=== PATIENT | male | born 1955 | race Caucasian/White ===

== ENCOUNTER 2019-04-24 14:56 | Emergency (ER) | payer MEDICAID, OTHER ==
[~2019-04-24] VITALS: Ht 180.3 cm; Wt 90.9 kg
[2019-04-24] MEDS ORDERED: LORazepam 1 MG tablet PO ONE (15:55)
--- NOTE | 2019-04-24 16:33 | NUR ---
pt is resting quietly on [place], family at bedside, pt is said "I am ready to go home"
[2019-04-24] MEDS ORDERED: LORA1TAB PO (16:38)
[2019-04-24] MEDS ORDERED: DOXY100C43 PO (16:38)
--- NOTE | 2019-04-24 17:12 | NUR ---
pt continues to rest quietly on gurney, waiting for lab results
[2019-04-24 17:37] VITALS: BP 153/93
== END 2019-04-24 18:14 | disposition home or self-care (01) ==
LOC: ER 14:57
DX: M25.512 Pain in left shoulder (principal); F10.239 Alcohol dependence with withdrawal, unspecified; L29.9 Pruritus, unspecified; I10 Essential (primary) hypertension; R73.9 Hyperglycemia, unspecified; Z88.5 Allergy status to narcotic agent; Z79.2 Long term (current) use of antibiotics; Z98.890 Other specified postprocedural states
CPT/HCPCS: 36415; 82948; 83036; 99283

== ENCOUNTER 2019-07-01 18:57 | Emergency (ER) | payer MEDICAID ==
[~2019-07-01] VITALS: Ht 180.3 cm; Wt 90.9 kg
--- NOTE | 2019-07-01 19:26 | NUR ---
PT STATES, I HAVE ABOUT 4-5 DRINKS A DAY. PT SEVERELY SHAKING
--- NOTE | 2019-07-01 19:27 | NUR ---
DOCTOR CHANGED HIS BP MED TO LISINOPRIL 10 MG. TOOK ONE THIS AM AND MADE HIM FEEL, NAUSEA, DIZZY AND WEAK.
[2019-07-01 19:39] LABS: BASOPHILS % (AUTO) 0.2 % (0-1); EOSINOPHILS # (AUTO) 0.1 X10'3 (0-0.9); EOSINOPHILS % (AUTO) 1.9 % (0-6); HEMATOCRIT 43.3 % (42.0-52.0); HEMOGLOBIN 15.4 g/dl (14.0-17.9); LYMPHOCYTES # (AUTO) 0.8 X10'3 (1.1-4.8); LYMPHOCYTES % (AUTO) 14.7 % (21-51); MEAN CORPUSCULAR HEMOGLOBIN 37.3 PG (27.0-31.0); MEAN CORPUSCULAR HGB CONC 35.6 g/dL (33.0-36.5); MEAN CORPUSCULAR VOLUME 104.6 FL (78-98); MEAN PLATELET VOLUME 7.5 FL (7.4-10.4); MONOCYTES # (AUTO) 0.4 X10'3 (0-0.9); MONOCYTES % (AUTO) 8.7 % (2-12); NEUTROPHILS # (AUTO) 3.8 X10'3 (1.8-7.7); NEUTROPHILS % (AUTO) 74.5 % (42-75); PLATELET COUNT 162 X10'3 (140-440); RED BLOOD COUNT 4.14 X10'6 (4.70-6.10); RED CELL DISTRIBUTION WIDTH 12.4 % (11.5-14.5); WHITE BLOOD COUNT 5.1 X10'3 (4.5-11.0)
[2019-07-01] MEDS ORDERED: diazepam 5mg tablet PO ONE (19:45)
[2019-07-01 19:46] LABS: PARTIAL THROMBOPLASTIN TIME 29 SECONDS (22-32)
[2019-07-01 19:50] LABS: ALANINE AMINOTRANSFERASE 58 U/L (12-78); ALBUMIN 3.4 G/DL (3.4-5.0); ALBUMIN/GLOBULIN RATIO 0.5 (1.1-1.5); ALKALINE PHOSPHATASE 101 IU/L (46-116); ANION GAP 6 (8-16); ASPARTATE AMINO TRANSFERASE 112 U/L (10-37); BILIRUBIN,TOTAL 0.8 MG/DL (0.1-1.0); BLOOD UREA NITROGEN 2 MG/DL (7-18); BUN/CREATININE RATIO 3.2 (5.4-32.0); CALCIUM 9.3 MG/DL (8.5-10.1); CHLORIDE 98 MMOL/L (99-107); CREATININE 0.63 MG/DL (0.60-1.10); POTASSIUM 3.6 MMOL/L (3.5-5.1); SODIUM 135 MMOL/L (135-145); TOTAL CARBON DIOXIDE 30.6 MMOL/L (24-32); TOTAL PROTEIN 9.7 G/DL (6.4-8.2); eGFR > 90 ML/MIN
[2019-07-01 19:53] LABS: GLUCOSE 134 MG/DL (70-104)
[2019-07-01 20:42] VITALS: BP 163/87
== END 2019-07-01 20:45 | disposition home or self-care (01) ==
LOC: ER 18:58
DX: I10 Essential (primary) hypertension (principal); R07.89 Other chest pain; Z88.5 Allergy status to narcotic agent
CPT/HCPCS: 36415; 71045; 80053; 84484; 85025; 85610; 85730; 93005; 99284

== ENCOUNTER 2020-02-28 13:44 | Outpatient (CLI) | payer MEDICAID ==
[2020-02-28] MEDS ORDERED: ASPI81TA52 PO (14:45)
[2020-02-28] MEDS ORDERED: DILT180C89 PO (14:45)
[2020-02-28 15:37] LABS: BASOPHILS % (AUTO) 0.3 % (0-1); EOSINOPHILS # (AUTO) 0.1 X10'3 (0-0.9); EOSINOPHILS % (AUTO) 0.7 % (0-6); LYMPHOCYTES # (AUTO) 1.5 X10'3 (1.1-4.8); LYMPHOCYTES % (AUTO) 11.4 % (21-51); MEAN CORPUSCULAR HEMOGLOBIN 36.7 PG (27.0-31.0); MEAN CORPUSCULAR HGB CONC 34.3 g/dL (33.0-36.5); MEAN CORPUSCULAR VOLUME 106.9 FL (78-98); NEUTROPHILS # (AUTO) 10.1 X10'3 (1.8-7.7); NEUTROPHILS % (AUTO) 79.6 % (42-75); PRE OP HEMATOCRIT 39.1 % (42.0-52.0); PRE OP HEMOGLOBIN 13.4 g/dL (14.0-17.9); PRE OP PLATELET COUNT 169 X10'3 (140-440); RED BLOOD COUNT 3.65 X10'6 (4.70-6.10); RED CELL DISTRIBUTION WIDTH 13.9 % (11.5-14.5)
[2020-02-28 15:54] LABS: ALBUMIN 2.3 G/DL (3.4-5.0); ALBUMIN/GLOBULIN RATIO 0.4 (1.1-1.5); ALKALINE PHOSPHATASE 137 IU/L (46-116); BLOOD UREA NITROGEN 4 MG/DL (7-18); BUN/CREATININE RATIO 5.9 (5.4-32.0); CALCIUM 8.4 MG/DL (8.5-10.1); CHLORIDE 96 MMOL/L (99-107); CREATININE 0.68 MG/DL (0.60-1.10); PRE OP ANION GAP 5 (8-16); PRE OP AST 65 U/L (10-37); PRE OP BILIRUB, TOTAL 1.8 MG/DL (0.0-1.0); PRE OP SODIUM 133 MMOL/L (135-145); TOTAL CARBON DIOXIDE 32.5 MMOL/L (24-32); TOTAL PROTEIN 8.8 G/DL (6.4-8.2); eGFR > 90 ML/MIN
[2020-02-28 15:56] LABS: PRE OP POTASSIUM 3.1 MMOL/L (3.4-5.1)
[2020-02-28 16:05] LABS: PRE OP ALT 15 U/L (30-65)
[2020-02-28 16:06] LABS: PRE OP GLUCOSE 122 MG/DL (70-104)
== END 2020-02-28 23:59 | disposition home or self-care (01) ==
LOC: PRE-OP 13:44 → EDSTATUS 03-07 12:15
PROVIDERS: ATTEND Orthopaedic Surgery
DX: Z01.818 Encounter for other preprocedural examination (principal); Z11.59 Encounter for screening for other viral diseases; M75.122 Complete rotator cuff tear or rupture of left shoulder, not specified as traumatic; D49.6 Neoplasm of unspecified behavior of brain; R25.1 Tremor, unspecified; M75.42 Impingement syndrome of left shoulder; M19.012 Primary osteoarthritis, left shoulder; F10.10 Alcohol abuse, uncomplicated; I10 Essential (primary) hypertension; E66.8 Other obesity; M75.41 Impingement syndrome of right shoulder; I45.81 Long QT syndrome
CPT/HCPCS: 36415; 80053; 85025; 93005; U0003

== ENCOUNTER 2020-07-01 08:23 | Inpatient (IN) | payer MEDICAID ==
[2020-07-01] VITALS (7 sets, daily range): BP systolic 114–131; BP diastolic 66–73
[~2020-07-01] VITALS: Ht 180.3 cm; Wt 83.2 kg
[~2020-07-01 08:23] MED LIST: ASPI81TA52 PO; DILT180C89 PO
[2020-07-01 09:59] LABS: CLARITY,URINE CLEAR (Clear); COLOR,URINE YELLOW (Yellow); GLUCOSE, URINE NEGATIVE (Neg); KETONES,URINE NEGATIVE (Neg); LEUKOCYTE ESTERASE ,URINE NEGATIVE (Neg); NITRITES, URINE NEGATIVE (Neg); OCCULT BLOOD,URINE SMALL (Neg); PH,URINE 8.5 (4.8-8.0); PROTEIN,URINE NEGATIVE (Neg)
[2020-07-01 10:15] LABS: BASOPHILS # (AUTO) 0.1 X10'3 (0-0.2); BASOPHILS % (AUTO) 0.6 % (0-1); EOSINOPHILS # (AUTO) 0.1 X10'3 (0-0.9); EOSINOPHILS % (AUTO) 1.1 % (0-6); HEMOGLOBIN 7.6 g/dl (14.0-17.9); LYMPHOCYTES # (AUTO) 0.9 X10'3 (1.1-4.8); LYMPHOCYTES % (AUTO) 10.1 % (21-51); MEAN CORPUSCULAR HEMOGLOBIN 37.8 PG (27.0-31.0); MEAN CORPUSCULAR HGB CONC 35.4 g/dL (33.0-36.5); MEAN CORPUSCULAR VOLUME 106.8 FL (78-98); MEAN PLATELET VOLUME 7.3 FL (7.4-10.4); MONOCYTES # (AUTO) 0.8 X10'3 (0-0.9); MONOCYTES % (AUTO) 9.2 % (2-12); NEUTROPHILS # (AUTO) 6.8 X10'3 (1.8-7.7); PLATELET COUNT 179 X10'3 (140-440); RED CELL DISTRIBUTION WIDTH 14.6 % (11.5-14.5); WHITE BLOOD COUNT 8.6 X10'3 (4.5-11.0)
[2020-07-01 10:19] LABS: HEMATOCRIT 21.4 % (42.0-52.0)
[2020-07-01 10:22] LABS: UA COLLECTION TYPE URINAL
[2020-07-01 10:27] LABS: PARTIAL THROMBOPLASTIN TIME 32 SECONDS (22-32)
[2020-07-01 10:29] LABS: ALANINE AMINOTRANSFERASE 26 U/L (12-78); ALBUMIN/GLOBULIN RATIO 0.3 (1.1-1.5); ALKALINE PHOSPHATASE 149 IU/L (46-116); ANION GAP 5 (8-16); ASPARTATE AMINO TRANSFERASE 107 U/L (10-37); BILIRUBIN,TOTAL 2.7 MG/DL (0.1-1.0); BLOOD UREA NITROGEN 3 MG/DL (7-18); BUN/CREATININE RATIO 4.5 (5.4-32.0); CALCIUM 7.8 MG/DL (8.5-10.1); CHLORIDE 103 MMOL/L (99-107); CREATININE 0.67 MG/DL (0.60-1.10); GLUCOSE 122 MG/DL (70-104); POTASSIUM 3.2 MMOL/L (3.5-5.1); SODIUM 138 MMOL/L (135-145); TOTAL CARBON DIOXIDE 30.4 MMOL/L (24-32); TOTAL PROTEIN 8.1 G/DL (6.4-8.2); eGFR > 90 ML/MIN
[2020-07-01 10:29] LABS: BACTERIA,URINE NONE SEEN /HPF (Neg); MUCUS STRANDS NONE SEEN /LPF (Neg); RBC,URINE NONE SEEN /HPF (0-2); SQUAMOUS EPITHELIAL CELL,UR FEW /LPF (FEW); WBC,URINE 0-4 /HPF (0-4)
[2020-07-01] MEDS ORDERED: tranexamic acid 1gm/0.7% sal. 100 ML IV ONE (11:25)
[2020-07-01] MEDS ORDERED: iohexol 300mg/ml 100ml inj. ONE (11:30)
--- NOTE | 2020-07-01 12:38 | NUR ---
when pt arrived changed his small dressing on his abd that is drenched in dry blood. checked the pt around 1200 and his dressing has soaked threw with blood and a pressure dressing to his abd per PA Flores has been applied.
[2020-07-01] MEDS ORDERED: mag hydrox/Alum hydrox/simeth 30ml oral suspension PO PRN (14:50)
[2020-07-01] MEDS ORDERED: ondansetron/PF 4mg/2ml inj IV PRN (14:50)
[2020-07-01] MEDS ORDERED: potassium CL 10mEq/100ml bag 100 ML IV PRN ×2 (14:50)
[2020-07-01] MEDS ORDERED: magnesium 4gm in 100ml NS 100 ML IV PRN (14:50)
[2020-07-01] MEDS ORDERED: magnesium 2GM in 50ml NS 50 ML IV PRN (14:50)
[2020-07-01] MEDS ORDERED: potassium Cl 20 mEq SR tablet PO PRN (14:50)
[2020-07-01] MEDS ORDERED: acetaminophen 325mg tablet PO PRN (14:50)
[2020-07-01 15:20] LABS: HEMATOCRIT 24.9 % (42.0-52.0); HEMOGLOBIN 8.7 g/dl (14.0-17.9); MEAN CORPUSCULAR HEMOGLOBIN 37.1 PG (27.0-31.0); MEAN CORPUSCULAR HGB CONC 35.1 g/dL (33.0-36.5); MEAN CORPUSCULAR VOLUME 105.6 FL (78-98); MEAN PLATELET VOLUME 7.3 FL (7.4-10.4); PLATELET COUNT 180 X10'3 (140-440); RED BLOOD COUNT 2.36 X10'6 (4.70-6.10); RED CELL DISTRIBUTION WIDTH 15.6 % (11.5-14.5); WHITE BLOOD COUNT 8.9 X10'3 (4.5-11.0)
[2020-07-01] MEDS ORDERED: haloperidol 5mg tablet PO PRN (15:25)
[2020-07-01] MEDS ORDERED: haloperidol lactate 5mg/ml inj IM PRN (15:25)
[2020-07-01] MEDS: pantoprazole 40MG/NS 100ML BAG 100 ML IV SCH ×2 (16:51→20:44)
[2020-07-01] MEDS ORDERED: FERR325T28 PO (17:05)
--- NOTE | 2020-07-01 17:07 | NUR ---
attempted to call report. graciela is with another pt at this time. states they will have her call me back.
--- NOTE | 2020-07-01 17:45 | NUR ---
Patient arrived to the floor transferred to bed with slide board. Redressed patients abdominal area with 4x4 gauze ABD and foam tape with abdominal binder. Patient oriented to room assessment complete mother at bedside, Tele monitor placed on patient.
--- NOTE | 2020-07-01 18:44 | NUR ---
Problems reprioritized. Patient report given, questions answered & plan of care reviewed with Brandon POLLARD.
[2020-07-01] MEDS: K and/or MAG REPLACEMENT MC SCH (20:00)
[2020-07-01] MEDS: LORazepam 2 mg/ml vial IV PRN (20:44)
[2020-07-01] MEDS: docusate sod 100mg capsule PO SCH (20:44)
[2020-07-01] MEDS: potassium Cl 20 mEq SR tablet PO PRN (20:58)
[2020-07-01 22:06] LABS: HEMATOCRIT 23.5 % (42.0-52.0); HEMOGLOBIN 8.2 g/dl (14.0-17.9); MEAN CORPUSCULAR HEMOGLOBIN 37.4 PG (27.0-31.0); MEAN CORPUSCULAR HGB CONC 34.9 g/dL (33.0-36.5); MEAN PLATELET VOLUME 7.5 FL (7.4-10.4); PLATELET COUNT 165 X10'3 (140-440); RED CELL DISTRIBUTION WIDTH 15.9 % (11.5-14.5); WHITE BLOOD COUNT 9.1 X10'3 (4.5-11.0)
[2020-07-01 22:14] LABS: OCCULT BLOOD STOOL NEGATIVE (Neg)
[2020-07-02] VITALS (53 sets, daily range): BP systolic 58–134; BP diastolic 30–106
--- NOTE | 2020-07-02 00:10 | NUR ---
Page Sent promotional table spacer PAGER ID: [phone] MESSAGE: pt room 4020 Alexey Leblanc. abdominal wound bleeding profusely through dressing and abdominal binder. PLEASE CALL [phone] Brandon
--- NOTE | 2020-07-02 00:15 | NUR ---
0015-Hospitalist Dr. Young return call from page. SBAR given pt on bed alarm up to RR, started bleed through abd binder, profusely. Pt was placed back in bed, supine pressure applied to umbilicus area. Was told to call Dr Lugo. Called Brittney SBAR given, he gave me # for IR continuous miner operator helper. Called [phone] got ans. machine. hung up called Nursing Sup, expl pt bleeding profusely expl will call rapid. Sup gave me a different # for IR continuous miner operator helper #[phone]. Called & spoke w/ Preeti (@0030) @ service who paged IR. Dr. English returned call, after SBAR was given he expl he is the Diagnostic Radilogist not IR. He told me to call service back & ask for Dr. Byers. Patients blood pressure 69/35-Immed. started NS BOLUS given-250. Labs drawn & blood glucose [id number] paged & 777 called by Francisca . Dr. Byers was paged he returned call, SBAR given, advised give fluid & 1 unit of blood & told to call September the PA to eval transfer to ICU. Called September ORTHODONTIST VICE PRESIDENT lockstitch back maker orders relayed, SBAR given. She stated she was on her way as rapid team was arriving to floor. During this entire time pt was supine in bed with pressure being applied to abdomen by nurse & additional nurses were continually assessing pt & providing interventions. Additional notes are listed in interventions & nursing notes.
[2020-07-02] MEDS ORDERED: albumin (human) 25% 100 ML IV solution IV ONE (00:55)
[2020-07-02 00:58] LABS: BASOPHILS # (AUTO) 0.1 X10'3 (0-0.2); BASOPHILS % (AUTO) 0.7 % (0-1); EOSINOPHILS # (AUTO) 0.2 X10'3 (0-0.9); EOSINOPHILS % (AUTO) 1.4 % (0-6); LYMPHOCYTES % (AUTO) 23.5 % (21-51); MEAN CORPUSCULAR HEMOGLOBIN 37.1 PG (27.0-31.0); MEAN CORPUSCULAR HGB CONC 34.8 g/dL (33.0-36.5); MEAN CORPUSCULAR VOLUME 106.5 FL (78-98); MEAN PLATELET VOLUME 7.1 FL (7.4-10.4); MONOCYTES # (AUTO) 0.8 X10'3 (0-0.9); MONOCYTES % (AUTO) 6.5 % (2-12); NEUTROPHILS # (AUTO) 8.6 X10'3 (1.8-7.7); NEUTROPHILS % (AUTO) 67.9 % (42-75); PLATELET COUNT 246 X10'3 (140-440); RED BLOOD COUNT 1.78 X10'6 (4.70-6.10); WHITE BLOOD COUNT 12.7 X10'3 (4.5-11.0)
[2020-07-02 01:00] LABS: HEMOGLOBIN 6.6 g/dl (14.0-17.9)
--- NOTE | 2020-07-02 01:00 | NUR ---
Problems reprioritized. Patient report given, questions answered & plan of care reviewed with Sandra POLLARD.
[2020-07-02 01:07] LABS: ALANINE AMINOTRANSFERASE 22 U/L (12-78); ALBUMIN 1.8 G/DL (3.4-5.0); ALBUMIN/GLOBULIN RATIO 0.3 (1.1-1.5); ALKALINE PHOSPHATASE 108 IU/L (46-116); ANION GAP 9 (8-16); ASPARTATE AMINO TRANSFERASE 91 U/L (10-37); BLOOD UREA NITROGEN 4 MG/DL (7-18); BUN/CREATININE RATIO 4.3 (5.4-32.0); CALCIUM 7.4 MG/DL (8.5-10.1); CHLORIDE 107 MMOL/L (99-107); CREATININE 0.92 MG/DL (0.60-1.10); LIPASE 130 U/L (73-393); MAGNESIUM 1.8 MG/DL (1.5-2.4); POTASSIUM 3.3 MMOL/L (3.5-5.1); SODIUM 141 MMOL/L (135-145); TOTAL CARBON DIOXIDE 24.9 MMOL/L (24-32); eGFR 83 ML/MIN
[2020-07-02 01:08] LABS: GLUCOSE 129 MG/DL (70-104)
--- NOTE | 2020-07-02 01:10 | NUR ---
pt transferred w/ Domingo POLLARD to ICU rm 2039
--- NOTE | 2020-07-02 01:15 | NUR ---
Patient in room ICU 2039. I have received report from Kelsie POLLARD (Ortho Neuro) and had the opportunity to ask questions and assume patient care. Tyler was called on patient and he is coming to ICU due to blood loss and hypotension. He arrived to bed 2039 with Albumin infusing. 1 unit of PRBC's is ordered and will be hung MITA. Patient is alert and oriented with stable VS. BP has already come up from the albumin.
[2020-07-02] MEDS: pantoprazole 40MG/NS 100ML BAG 100 ML IV SCH ×6 (02:10→18:22)
[2020-07-02] MEDS ORDERED: HUMAN PROTHROMBIN COMPLX(PCC) 500 UNIT KIT IV ONE (03:50)
[2020-07-02 05:17] LABS: MEAN CORPUSCULAR HEMOGLOBIN 35.5 PG (27.0-31.0); MEAN CORPUSCULAR HGB CONC 34.8 g/dL (33.0-36.5); MEAN PLATELET VOLUME 7.3 FL (7.4-10.4); PLATELET COUNT 136 X10'3 (140-440); RED CELL DISTRIBUTION WIDTH 19.4 % (11.5-14.5); WHITE BLOOD COUNT 9.8 X10'3 (4.5-11.0)
[2020-07-02 05:23] LABS: HEMATOCRIT 17.4 % (42.0-52.0)
--- NOTE | 2020-07-02 05:45 | NUR ---
Called pts mom Vanna to inform her of son's status, that his dermabond did not hold after he attempted to use RR. Vanna said she was not surprised. Informed her pt transferred to ICU & gave room number. Called Rose RN day ICU nurse for this pt and related moms phone numbers , & .
--- NOTE | 2020-07-02 06:42 | NUR ---
Problems reprioritized. Patient report given, questions answered & plan of care reviewed with Rose POLLARD.
[2020-07-02] MEDS: docusate sod 100mg capsule PO SCH ×2 (07:37→20:00)
[2020-07-02] MEDS: thiamine 100mg tablet PO SCH (07:37)
[2020-07-02] MEDS: folic acid 1mg tablet PO SCH (07:38)
[2020-07-02] MEDS: multivitamins, therapeutics tablet PO SCH (07:38)
[2020-07-02] MEDS: ferrous sulfate 325mg tablet PO SCH (07:38)
[2020-07-02] MEDS: potassium Cl 20 mEq SR tablet PO PRN ×2 (07:39→12:45)
[2020-07-02] MEDS: K and/or MAG REPLACEMENT MC SCH ×2 (08:00→20:00)
[2020-07-02 10:25] LABS: MEAN CORPUSCULAR HEMOGLOBIN 35.7 PG (27.0-31.0); MEAN CORPUSCULAR HGB CONC 35.5 g/dL (33.0-36.5); MEAN CORPUSCULAR VOLUME 100.5 FL (78-98); PLATELET COUNT 133 X10'3 (140-440); RED BLOOD COUNT 1.94 X10'6 (4.70-6.10); RED CELL DISTRIBUTION WIDTH 19.7 % (11.5-14.5); WHITE BLOOD COUNT 9.6 X10'3 (4.5-11.0)
[2020-07-02 10:29] LABS: HEMOGLOBIN 6.9 g/dl (14.0-17.9)
[2020-07-02 10:30] LABS: HEMATOCRIT 19.5 % (42.0-52.0)
--- NOTE | 2020-07-02 15:41 | NUR ---
Patient is resting comfortably in bed with no complaints at this time. He requests a blanket and his phone to be plugged in which are both done.
[2020-07-02 16:41] LABS: HEMATOCRIT 26.2 % (42.0-52.0); HEMOGLOBIN 9.3 g/dl (14.0-17.9); MEAN CORPUSCULAR HEMOGLOBIN 34.1 PG (27.0-31.0); MEAN CORPUSCULAR HGB CONC 35.4 g/dL (33.0-36.5); MEAN CORPUSCULAR VOLUME 96.4 FL (78-98); MEAN PLATELET VOLUME 7.3 FL (7.4-10.4); PLATELET COUNT 132 X10'3 (140-440); RED BLOOD COUNT 2.72 X10'6 (4.70-6.10); RED CELL DISTRIBUTION WIDTH 20.3 % (11.5-14.5); WHITE BLOOD COUNT 9.8 X10'3 (4.5-11.0)
--- NOTE | 2020-07-02 18:20 | NUR ---
Patient in room ICU 2039. I have received report from Rose POLLARD and had the opportunity to ask questions and assume patient care. Patient is resting and receiving his 6th unit of blood. He is on a protonix gtt. VS are stable, will continue to monitor.
[2020-07-02] MEDS ORDERED: nitroGLYCERIN-Tridil 50MG/D5W 250 ML IV PRN (19:00)
[2020-07-02] MEDS: LORazepam 2 mg/ml vial IV PRN ×2 (19:20→22:21)
[2020-07-02] MEDS ORDERED: hydrALAZINE 20mg/ml inj. IV ONE (20:00)
[2020-07-02] MEDS ORDERED: iohexol 300mg/ml 100ml inj. ONE (20:50)
[2020-07-02] MEDS ORDERED: iohexol 350MG/ML 100ml bottle IV ONE (20:51)
[2020-07-03] VITALS (24 sets, daily range): BP systolic 101–133; BP diastolic 52–76
[2020-07-03 01:31] LABS: HEMATOCRIT 28.2 % (42.0-52.0); HEMOGLOBIN 10.2 g/dl (14.0-17.9); MEAN CORPUSCULAR HEMOGLOBIN 33.6 PG (27.0-31.0); MEAN CORPUSCULAR HGB CONC 36.2 g/dL (33.0-36.5); MEAN PLATELET VOLUME 7.2 FL (7.4-10.4); PLATELET COUNT 123 X10'3 (140-440); RED BLOOD COUNT 3.04 X10'6 (4.70-6.10); RED CELL DISTRIBUTION WIDTH 19.3 % (11.5-14.5); WHITE BLOOD COUNT 9.6 X10'3 (4.5-11.0)
[2020-07-03 01:41] LABS: ALANINE AMINOTRANSFERASE 20 U/L (12-78); ALBUMIN 2.2 G/DL (3.4-5.0); ALKALINE PHOSPHATASE 90 IU/L (46-116); ANION GAP 8 (8-16); ASPARTATE AMINO TRANSFERASE 72 U/L (10-37); BILIRUBIN,TOTAL 6.5 MG/DL (0.1-1.0); BLOOD UREA NITROGEN 6 MG/DL (7-18); BUN/CREATININE RATIO 8.5 (5.4-32.0); CALCIUM 7.3 MG/DL (8.5-10.1); CHLORIDE 103 MMOL/L (99-107); CREATININE 0.71 MG/DL (0.60-1.10); LIPASE 121 U/L (73-393); MAGNESIUM 1.3 MG/DL (1.5-2.4); POTASSIUM 3.7 MMOL/L (3.5-5.1); SODIUM 134 MMOL/L (135-145); TOTAL CARBON DIOXIDE 22.7 MMOL/L (24-32); eGFR > 90 ML/MIN
[2020-07-03 01:44] LABS: ALBUMIN/GLOBULIN RATIO 0.5 (1.1-1.5); GLUCOSE 97 MG/DL (70-104); TOTAL PROTEIN 6.6 G/DL (6.4-8.2)
[2020-07-03] MEDS: pantoprazole 40MG/NS 100ML BAG 100 ML IV SCH ×5 (01:46→22:38)
--- NOTE | 2020-07-03 06:25 | NUR ---
Problems reprioritized. Patient report given, questions answered & plan of care reviewed with Matthew POLLARD.
--- NOTE | 2020-07-03 07:23 | NUR ---
LOGAN RN PAGED REGARDING PICC PLACEMENT FOR FLUID REPLACEMENT FOR PT. NO ORDER FOR PICC SIGNED PER RN. PLACED SECOND PIV FOR MAG AND NITRO. ADVISED HER TO REPAGE IF PICC CONSENT SIGNED AND NEEDED. Jerrod BAÑUELOS PICC RN
[2020-07-03] MEDS: K and/or MAG REPLACEMENT MC SCH ×2 (08:00→20:00)
[2020-07-03] MEDS: ferrous sulfate 325mg tablet PO SCH (08:20)
[2020-07-03] MEDS: docusate sod 100mg capsule PO SCH ×2 (08:20→20:00)
[2020-07-03] MEDS: folic acid 1mg tablet PO SCH (08:21)
[2020-07-03] MEDS: multivitamins, therapeutics tablet PO SCH (08:21)
[2020-07-03] MEDS: thiamine 100mg tablet PO SCH (08:22)
[2020-07-03 09:05] LABS: HEMATOCRIT 30.4 % (42.0-52.0); HEMOGLOBIN 10.7 g/dl (14.0-17.9); MEAN CORPUSCULAR HEMOGLOBIN 32.9 PG (27.0-31.0); MEAN CORPUSCULAR HGB CONC 35.1 g/dL (33.0-36.5); MEAN CORPUSCULAR VOLUME 93.7 FL (78-98); MEAN PLATELET VOLUME 7.3 FL (7.4-10.4); PLATELET COUNT 135 X10'3 (140-440); RED BLOOD COUNT 3.24 X10'6 (4.70-6.10); RED CELL DISTRIBUTION WIDTH 20.3 % (11.5-14.5); WHITE BLOOD COUNT 10.9 X10'3 (4.5-11.0)
--- NOTE | 2020-07-03 10:25 | NUR ---
Disregard 0903 VS comment pt is mechanical ventilated. Pt is on RA.
[2020-07-03 15:27] LABS: HEMATOCRIT 31.1 % (42.0-52.0); HEMOGLOBIN 10.7 g/dl (14.0-17.9); MEAN CORPUSCULAR HEMOGLOBIN 32.4 PG (27.0-31.0); MEAN CORPUSCULAR HGB CONC 34.5 g/dL (33.0-36.5); MEAN CORPUSCULAR VOLUME 93.9 FL (78-98); MEAN PLATELET VOLUME 7.1 FL (7.4-10.4); PLATELET COUNT 134 X10'3 (140-440); RED BLOOD COUNT 3.31 X10'6 (4.70-6.10); RED CELL DISTRIBUTION WIDTH 20.6 % (11.5-14.5); WHITE BLOOD COUNT 11.1 X10'3 (4.5-11.0)
--- NOTE | 2020-07-03 18:33 | NUR ---
Problems reprioritized. Patient report given, questions answered & plan of care reviewed with Sandra POLLARD.
[2020-07-03] MEDS: LORazepam 1 MG tablet PO PRN ×2 (20:31→22:38)
[2020-07-03 20:51] LABS: HEMATOCRIT 29.2 % (42.0-52.0); HEMOGLOBIN 10.3 g/dl (14.0-17.9); MEAN CORPUSCULAR HEMOGLOBIN 33.1 PG (27.0-31.0); MEAN CORPUSCULAR HGB CONC 35.3 g/dL (33.0-36.5); MEAN CORPUSCULAR VOLUME 93.7 FL (78-98); MEAN PLATELET VOLUME 6.9 FL (7.4-10.4); PLATELET COUNT 139 X10'3 (140-440); RED BLOOD COUNT 3.11 X10'6 (4.70-6.10); RED CELL DISTRIBUTION WIDTH 20.3 % (11.5-14.5); WHITE BLOOD COUNT 10.8 X10'3 (4.5-11.0)
[2020-07-03 21:09] LABS: ALANINE AMINOTRANSFERASE 21 U/L (12-78); ALBUMIN 2.2 G/DL (3.4-5.0); ALKALINE PHOSPHATASE 96 IU/L (46-116); ANION GAP 5 (8-16); ASPARTATE AMINO TRANSFERASE 78 U/L (10-37); BILIRUBIN,TOTAL 4.4 MG/DL (0.1-1.0); BLOOD UREA NITROGEN 6 MG/DL (7-18); BUN/CREATININE RATIO 9.8 (5.4-32.0); CALCIUM 7.5 MG/DL (8.5-10.1); CHLORIDE 102 MMOL/L (99-107); CREATININE 0.61 MG/DL (0.60-1.10); GLUCOSE 121 MG/DL (70-104); MAGNESIUM 2.4 MG/DL (1.5-2.4); POTASSIUM 3.6 MMOL/L (3.5-5.1); SODIUM 133 MMOL/L (135-145); TOTAL CARBON DIOXIDE 26.1 MMOL/L (24-32); eGFR > 90 ML/MIN
[2020-07-03 21:10] LABS: TOTAL PROTEIN 7.1 G/DL (6.4-8.2)
[2020-07-03 21:12] LABS: ALBUMIN/GLOBULIN RATIO 0.4 (1.1-1.5)
[2020-07-03] MEDS: temazepam 15mg capsule PO PRN (22:38)
[2020-07-04] VITALS (25 sets, daily range): BP systolic 91–159; BP diastolic 51–79
[2020-07-04] MEDS: pantoprazole 40MG/NS 100ML BAG 100 ML IV SCH ×4 (04:25→21:02)
[2020-07-04] MEDS: LORazepam 1 MG tablet PO PRN (04:25)
[2020-07-04 04:32] LABS: HEMATOCRIT 27.7 % (42.0-52.0); HEMOGLOBIN 9.7 g/dl (14.0-17.9); MEAN CORPUSCULAR VOLUME 94.4 FL (78-98); PLATELET COUNT 137 X10'3 (140-440); RED BLOOD COUNT 2.93 X10'6 (4.70-6.10); RED CELL DISTRIBUTION WIDTH 20.6 % (11.5-14.5)
[2020-07-04 04:40] LABS: ALANINE AMINOTRANSFERASE 19 U/L (12-78); ALBUMIN 2.2 G/DL (3.4-5.0); ALBUMIN/GLOBULIN RATIO 0.5 (1.1-1.5); ALKALINE PHOSPHATASE 96 IU/L (46-116); ANION GAP 5 (8-16); ASPARTATE AMINO TRANSFERASE 71 U/L (10-37); BILIRUBIN,TOTAL 4.4 MG/DL (0.1-1.0); BLOOD UREA NITROGEN 7 MG/DL (7-18); BUN/CREATININE RATIO 9.2 (5.4-32.0); CALCIUM 7.5 MG/DL (8.5-10.1); CHLORIDE 105 MMOL/L (99-107); CREATININE 0.76 MG/DL (0.60-1.10); GLUCOSE 95 MG/DL (70-104); LIPASE 157 U/L (73-393); MAGNESIUM 2.4 MG/DL (1.5-2.4); PHOSPHORUS 3.7 MG/DL (2.3-4.5); POTASSIUM 3.6 MMOL/L (3.5-5.1); SODIUM 135 MMOL/L (135-145); TOTAL CARBON DIOXIDE 25.3 MMOL/L (24-32); TOTAL PROTEIN 6.9 G/DL (6.4-8.2); eGFR > 90 ML/MIN
--- NOTE | 2020-07-04 06:38 | NUR ---
Problems reprioritized. Patient report given, questions answered & plan of care reviewed with Luz Garcia RN.
--- NOTE | 2020-07-04 07:02 | NUR ---
Patient in room ICU 2039. I have received report from Vidya Brooke and had the opportunity to ask questions and assume patient care.
[2020-07-04] MEDS: LORazepam 2 mg/ml vial IV PRN ×4 (07:43→19:54)
[2020-07-04] MEDS: thiamine 100mg tablet PO SCH (07:45)
[2020-07-04] MEDS: folic acid 1mg tablet PO SCH (07:45)
[2020-07-04] MEDS: multivitamins, therapeutics tablet PO SCH (07:46)
[2020-07-04] MEDS: ferrous sulfate 325mg tablet PO SCH (07:46)
[2020-07-04] MEDS: K and/or MAG REPLACEMENT MC SCH ×2 (07:51→20:00)
[2020-07-04] MEDS: docusate sod 100mg capsule PO SCH ×2 (08:00→20:00)
--- NOTE | 2020-07-04 10:16 | NUR ---
Dr. Olson at bedside with patient and nurse. New orders to have FC to monitor for critically ill and to order 2 units PRBS for surgery.
--- NOTE | 2020-07-04 11:22 | NUR ---
Initial: Pt admit DX etoh withdrawal and umbilical vein bleed persisting upon movement w/ prior umbilical hernia. Advanced to regular diet PO 0-25% first meals receiving adaptive dumont for shakiness and etoh withdrawal. Pending OR today for umbilical bleed repair per MD at [facility]. LB 07/03. Receiving routine thiamin, folic, MVI for etoh hx. Will monitor for PO diet advancement, tolerance, and additional protein needs post-op. Rec: 1. continue regular diet 2. monitor for ONS needs post-op 3. routine bowel care 4. wt per rx Addendum: 07/04/20 at [address] Amended: Links added.
--- NOTE | 2020-07-04 11:48 | NUR ---
Dr. Sheehan at bedside with patient and nurse. Patient was educated on procedure, with potential time of 1600 today. Pre op two hours before. Type and screen ordered and 2 units on stand by. Will continue to monitor.
[2020-07-04 12:29] LABS: HEMATOCRIT 27.6 % (42.0-52.0); HEMOGLOBIN 9.6 g/dl (14.0-17.9); MEAN CORPUSCULAR HEMOGLOBIN 33.1 PG (27.0-31.0); MEAN CORPUSCULAR HGB CONC 34.6 g/dL (33.0-36.5); MEAN CORPUSCULAR VOLUME 95.6 FL (78-98); PLATELET COUNT 138 X10'3 (140-440); RED BLOOD COUNT 2.89 X10'6 (4.70-6.10); RED CELL DISTRIBUTION WIDTH 20.5 % (11.5-14.5)
[2020-07-04] MEDS ORDERED: fentaNYL/PF 50MCG/1 ML 2ML syringe IV PRN ×2 (17:45)
[2020-07-04] MEDS ORDERED: ringers solution, lacted 1,000 ML IV SCH (17:45)
[2020-07-04] MEDS ORDERED: ondansetron/PF 4mg/2ml inj IV PRN (17:45)
[2020-07-04] MEDS ORDERED: HYDROmorphone inj. 0.5 MG/0.5 ML DISP.SYRIN IV PRN ×2 (17:45)
[2020-07-04] MEDS ORDERED: labetalol 20mg/4ml (5mg/ml) syringe IV PRN (17:45)
[2020-07-04] MEDS ORDERED: enalaprilat dihydrate 2.5mg/2ml vial IV PRN (17:45)
[2020-07-04] MEDS ORDERED: LIDOcaine 1% 30ml preserv. free vial ONE (18:15)
[2020-07-04] MEDS ORDERED: BUPIVAcaine/PF 2.5mg/ml (0.25%) 10ml vial ONE (18:15)
[2020-07-04] MEDS ORDERED: BUPIVACAINE liposomal/PF 13.3 MG/ML vial IM ONE (18:15)
[2020-07-04] MEDS ORDERED: BUPIVAcaine/PF 2.5 mg/ml (0.25%) 30ml vial ONE (18:15)
--- NOTE | 2020-07-04 18:34 | NUR ---
Problems reprioritized. Patient report given, questions answered & plan of care reviewed with Jodi POLLARD.
[2020-07-04 18:35] LABS: HEMATOCRIT 30.5 % (42.0-52.0); HEMOGLOBIN 10.8 g/dl (14.0-17.9); MEAN CORPUSCULAR HGB CONC 35.5 g/dL (33.0-36.5); MEAN CORPUSCULAR VOLUME 95.8 FL (78-98); MEAN PLATELET VOLUME 7.2 FL (7.4-10.4); PLATELET COUNT 155 X10'3 (140-440); RED BLOOD COUNT 3.18 X10'6 (4.70-6.10); RED CELL DISTRIBUTION WIDTH 20.1 % (11.5-14.5); WHITE BLOOD COUNT 10.1 X10'3 (4.5-11.0)
--- NOTE | 2020-07-04 18:47 | NUR ---
Patient in room ICU 2039. I have received report from Luz Sr RN and had the opportunity to ask questions and assume patient care.
--- NOTE | 2020-07-04 19:30 | NUR ---
Patient experienced a nonwitnessed fall. Patient was found on his knees attempting to get to the toilet underneath sink. Patient is confused r/t ETOH use and anemia and is on fall precautions. Pt had non skid socks on, his bed was low and locked, all side rails up, bed alarm was on and tabs attached to shoulder, room is near nurses station, with call light within pt's reach. patient was frequently reoriented to plan of care and the importance of using his call light and not getting up without assistance. patient still managed to pull off his quality assurance monitor final, IV line and SCD's and slip out of the bottom of the bed. Patient did not sustain any injury upon fall and stated that he did not his head. Patient denies pain or discomfort. Vitals stable pre fall at 159/71, HR-86, RR-20, O2 RA-95% and post fall 143/48, RR-20, HR-70, O2-93% on RA. Will continue to monitor for any changes.
[2020-07-05] VITALS (22 sets, daily range): BP systolic 113–157; BP diastolic 59–88
[2020-07-05] MEDS: docusate sod 100mg capsule PO SCH ×2 (00:55→08:37)
[2020-07-05] MEDS: LORazepam 2 mg/ml vial IV PRN ×2 (01:33→13:33)
[2020-07-05] MEDS: pantoprazole 40MG/NS 100ML BAG 100 ML IV SCH ×5 (01:38→21:00)
[2020-07-05 05:29] LABS: ALANINE AMINOTRANSFERASE 16 U/L (12-78); ALKALINE PHOSPHATASE 93 IU/L (46-116); ANION GAP 6 (8-16); ASPARTATE AMINO TRANSFERASE 66 U/L (10-37); BILIRUBIN,TOTAL 4.1 MG/DL (0.1-1.0); BLOOD UREA NITROGEN 7 MG/DL (7-18); BUN/CREATININE RATIO 10.1 (5.4-32.0); CALCIUM 7.6 MG/DL (8.5-10.1); CHLORIDE 107 MMOL/L (99-107); CREATININE 0.69 MG/DL (0.60-1.10); GLUCOSE 101 MG/DL (70-104); HDL CHOLESTEROL 11 MG/DL (35-60); LDL CHOLESTEROL 100 MG/DL (50-100); MAGNESIUM 2.1 MG/DL (1.5-2.4); POTASSIUM 3.6 MMOL/L (3.5-5.1); SODIUM 136 MMOL/L (135-145); TOTAL CARBON DIOXIDE 22.6 MMOL/L (24-32); eGFR > 90 ML/MIN
[2020-07-05 05:40] LABS: ALBUMIN/GLOBULIN RATIO 0.4 (1.1-1.5); CHOL/HDL RATIO 11.2 (0.00-4.99); CHOLESTEROL 123 MG/DL (0-200); PHOSPHORUS 3.3 MG/DL (2.3-4.5); TOTAL PROTEIN 6.8 G/DL (6.4-8.2); TRIGLYCERIDES 106 MG/DL (20-135)
--- NOTE | 2020-07-05 07:12 | NUR ---
Problems reprioritized. Patient report given, questions answered & plan of care reviewed with Shira POLLARD. Patient stable at transfer of care
[2020-07-05] MEDS: K and/or MAG REPLACEMENT MC SCH ×2 (08:15→20:00)
[2020-07-05] MEDS: folic acid 1mg tablet PO SCH (08:37)
[2020-07-05] MEDS: thiamine 100mg tablet PO SCH (08:37)
[2020-07-05] MEDS: multivitamins, therapeutics tablet PO SCH (08:37)
[2020-07-05] MEDS: ferrous sulfate 325mg tablet PO SCH (08:58)
--- NOTE | 2020-07-05 09:12 | NUR ---
New orders for CBC, mag and phos for the next [address] Olson
[2020-07-05 09:51] LABS: BASOPHILS % (AUTO) 0.5 % (0-1); EOSINOPHILS # (AUTO) 0.1 X10'3 (0-0.9); EOSINOPHILS % (AUTO) 1.5 % (0-6); HEMATOCRIT 29.1 % (42.0-52.0); LYMPHOCYTES # (AUTO) 0.8 X10'3 (1.1-4.8); LYMPHOCYTES % (AUTO) 8.4 % (21-51); MEAN CORPUSCULAR HEMOGLOBIN 33.1 PG (27.0-31.0); MEAN CORPUSCULAR HGB CONC 34.5 g/dL (33.0-36.5); MEAN CORPUSCULAR VOLUME 96.1 FL (78-98); MONOCYTES # (AUTO) 0.7 X10'3 (0-0.9); MONOCYTES % (AUTO) 7.7 % (2-12); NEUTROPHILS # (AUTO) 7.3 X10'3 (1.8-7.7); NEUTROPHILS % (AUTO) 81.9 % (42-75); PLATELET COUNT 150 X10'3 (140-440); RED BLOOD COUNT 3.03 X10'6 (4.70-6.10); RED CELL DISTRIBUTION WIDTH 20.1 % (11.5-14.5); WHITE BLOOD COUNT 8.9 X10'3 (4.5-11.0)
[2020-07-05 11:07] LABS: ANISOCYTOSIS 3+; PLATELET ESTIMATE NORMAL
[2020-07-05 11:08] LABS: POLYCHROMASIA FEW
[2020-07-05] MEDS ORDERED: LIDOcaine 1% (10mg/ml) 2ml vial ONE ×2 (14:05→14:37)
[2020-07-05] MEDS ORDERED: BUPIVACAINE liposomal/PF 13.3 MG/ML vial IM ONE (14:16)
[2020-07-05] MEDS ORDERED: BUPIVAcaine/PF 2.5 mg/ml (0.25%) 30ml vial ONE (14:16)
[2020-07-05] MEDS ORDERED: midazolam 2 mg/2 ml injection ONE (14:39)
[2020-07-05] MEDS ORDERED: propofol inj 20 ML IV ONE (14:39)
[2020-07-05] MEDS ORDERED: rocuronium 10mg/ml inj IV ONE (14:39)
[2020-07-05] MEDS ORDERED: fentaNYL/PF 50MCG/1 ML 2ML syringe ONE ×2 (14:39→17:30)
[2020-07-05] MEDS ORDERED: LORazepam 2 mg/ml vial IV PRN (15:25)
[2020-07-05] MEDS ORDERED: LORazepam 1 MG tablet PO PRN (15:25)
[2020-07-05] MEDS ORDERED: albumin (Human) 5% 250ml 250 ML IV ONE (17:18)
[2020-07-05] MEDS ORDERED: neostigmine methylsulfate 1 MG/ML 10ml vial ONE (17:30)
[2020-07-05] MEDS ORDERED: glycopyrrolate 0.2mg/ml inj ONE (17:30)
[2020-07-05] MEDS ORDERED: ondansetron/PF 4mg/2ml inj IV PRN (17:40)
--- NOTE | 2020-07-05 18:30 | NUR ---
Problems reprioritized. Patient report given, questions answered & plan of care reviewed with LATRICE Sun.
--- NOTE | 2020-07-05 18:43 | NUR ---
Patient in room ICU 2039. I have received report from Shira POLLARD and had the opportunity to ask questions and assume patient care.
--- NOTE | 2020-07-05 19:00 | NUR ---
REPORT RECEIVED FROM ILIANA IN ICU AND AWAITING FOR PATIENT ARRIVAL.
--- NOTE | 2020-07-05 19:00 | NUR ---
Problems reprioritized. Patient report given, questions answered & plan of care reviewed with Prudence RN.
--- NOTE | 2020-07-05 19:30 | NUR ---
Post op LR infusing at 50cc/HR. Protonix IV cont. initiated post op.
[2020-07-05] MEDS: HYDROcodone/acetaminophen 10/325mg tab PO PRN (19:40)
--- NOTE | 2020-07-05 22:23 | NUR ---
Pt transferring to PCU via bed.
--- NOTE | 2020-07-05 22:56 | NUR ---
PATIENT ARRIVED ON THE UNIT AND IS NOW RESTING WITH A SITTER BY HIS BEDSIDE. WILL ASSUME CARE AND ADMINISTER MEDICATIONS ORDERED.
--- NOTE | 2020-07-05 22:58 | NUR ---
Pt arrived to 301 via bed w/o incident.
[2020-07-06] MEDS: ceFAZolin inj. 1,000 MG in dextrose 5%-water 50ml 50 ML IV SCH ×3 (00:12→17:21)
[2020-07-06] MEDS: pantoprazole 40MG/NS 100ML BAG 100 ML IV SCH ×6 (00:16→22:34)
[2020-07-06 02:00] VITALS: BP 97/59
[2020-07-06 05:36] LABS: BASOPHILS % (AUTO) 0.3 % (0-1); EOSINOPHILS # (AUTO) 0.1 X10'3 (0-0.9); EOSINOPHILS % (AUTO) 1.5 % (0-6); HEMATOCRIT 27.9 % (42.0-52.0); HEMOGLOBIN 9.7 g/dl (14.0-17.9); LYMPHOCYTES # (AUTO) 0.8 X10'3 (1.1-4.8); LYMPHOCYTES % (AUTO) 10.1 % (21-51); MEAN CORPUSCULAR HEMOGLOBIN 33.8 PG (27.0-31.0); MEAN CORPUSCULAR HGB CONC 34.8 g/dL (33.0-36.5); MEAN CORPUSCULAR VOLUME 97.2 FL (78-98); MEAN PLATELET VOLUME 7.4 FL (7.4-10.4); MONOCYTES # (AUTO) 0.5 X10'3 (0-0.9); MONOCYTES % (AUTO) 6.4 % (2-12); NEUTROPHILS # (AUTO) 6.2 X10'3 (1.8-7.7); NEUTROPHILS % (AUTO) 81.7 % (42-75); PLATELET COUNT 129 X10'3 (140-440); RED BLOOD COUNT 2.87 X10'6 (4.70-6.10); RED CELL DISTRIBUTION WIDTH 21.3 % (11.5-14.5); WHITE BLOOD COUNT 7.6 X10'3 (4.5-11.0)
[2020-07-06 06:02] LABS: ALANINE AMINOTRANSFERASE 16 U/L (12-78); ALBUMIN/GLOBULIN RATIO 0.4 (1.1-1.5); ALKALINE PHOSPHATASE 80 IU/L (46-116); ANION GAP 7 (8-16); ASPARTATE AMINO TRANSFERASE 61 U/L (10-37); BILIRUBIN,TOTAL 3.5 MG/DL (0.1-1.0); BLOOD UREA NITROGEN 7 MG/DL (7-18); BUN/CREATININE RATIO 10.8 (5.4-32.0); CALCIUM 7.7 MG/DL (8.5-10.1); CHLORIDE 103 MMOL/L (99-107); CREATININE 0.65 MG/DL (0.60-1.10); GLUCOSE 101 MG/DL (70-104); LIPASE 57 U/L (73-393); MAGNESIUM 1.8 MG/DL (1.5-2.4); PHOSPHORUS 3.4 MG/DL (2.3-4.5); POTASSIUM 3.5 MMOL/L (3.5-5.1); SODIUM 135 MMOL/L (135-145); TOTAL CARBON DIOXIDE 25.2 MMOL/L (24-32); TOTAL PROTEIN 6.7 G/DL (6.4-8.2); eGFR > 90 ML/MIN
--- NOTE | 2020-07-06 06:35 | NUR ---
Problems reprioritized. Patient report given, questions answered & plan of care reviewed with LAVONNE POLLARD.
[2020-07-06 07:00] VITALS: BP 125/61
[2020-07-06] MEDS: K and/or MAG REPLACEMENT MC SCH ×2 (08:00→19:50)
[2020-07-06] MEDS: folic acid 1mg tablet PO SCH (08:01)
[2020-07-06] MEDS: thiamine 100mg tablet PO SCH (08:01)
[2020-07-06] MEDS: multivitamins, therapeutics tablet PO SCH (08:01)
[2020-07-06] MEDS: docusate sod 100mg capsule PO SCH ×2 (08:01→19:57)
[2020-07-06] MEDS: ferrous sulfate 325mg tablet PO SCH (08:01)
[2020-07-06] MEDS: HYDROcodone/acetaminophen 10/325mg tab PO PRN (08:02)
[2020-07-06 08:49] LABS: ANISOCYTOSIS 3+; HYPOCHROMASIA 1+; PLATELET ESTIMATE DECREASED; POLYCHROMASIA 1+
[2020-07-06 08:50] LABS: ROULEAUX 1+; TARGET CELLS FEW
[2020-07-06] MEDS ORDERED: epoetin 20,000 units/ml inj IV ONE (09:50)
[2020-07-06] MEDS ORDERED: normal saline 1000ml 250 ML IV PRN (09:50)
[2020-07-06] MEDS ORDERED: heparin 1,000unit/ml 10ml vial 10 ML IV ONE (09:50)
[2020-07-06] MEDS ORDERED: heparin 1,000 units/ml 10ml inj HE ONE ×2 (09:55)
[2020-07-06 15:00] VITALS: BP 121/72
[2020-07-06 18:00] VITALS: BP 114/68
--- NOTE | 2020-07-06 18:41 | NUR ---
Patient in room PCU 3012. I have received report from LAVONNE POLLARD and had the opportunity to ask questions and assume patient care.
--- NOTE | 2020-07-06 19:11 | NUR ---
Gave report to Prudence LATRICE.
[2020-07-06] MEDS: temazepam 15mg capsule PO PRN (21:32)
[2020-07-06 22:00] VITALS: BP 118/70
[2020-07-07 02:00] VITALS: BP 112/70
[2020-07-07] MEDS: pantoprazole 40MG/NS 100ML BAG 100 ML IV SCH ×2 (03:10→09:22)
[2020-07-07 05:49] LABS: BASOPHILS % (AUTO) 0.3 % (0-1); EOSINOPHILS # (AUTO) 0.1 X10'3 (0-0.9); EOSINOPHILS % (AUTO) 1.3 % (0-6); HEMATOCRIT 30.4 % (42.0-52.0); HEMOGLOBIN 10.5 g/dl (14.0-17.9); LYMPHOCYTES # (AUTO) 0.9 X10'3 (1.1-4.8); MEAN CORPUSCULAR HEMOGLOBIN 33.9 PG (27.0-31.0); MEAN CORPUSCULAR HGB CONC 34.4 g/dL (33.0-36.5); MEAN CORPUSCULAR VOLUME 98.6 FL (78-98); MEAN PLATELET VOLUME 7.1 FL (7.4-10.4); MONOCYTES # (AUTO) 0.9 X10'3 (0-0.9); MONOCYTES % (AUTO) 8.2 % (2-12); NEUTROPHILS # (AUTO) 8.7 X10'3 (1.8-7.7); NEUTROPHILS % (AUTO) 82.2 % (42-75); PLATELET COUNT 171 X10'3 (140-440); RED BLOOD COUNT 3.09 X10'6 (4.70-6.10); WHITE BLOOD COUNT 10.6 X10'3 (4.5-11.0)
--- NOTE | 2020-07-07 06:22 | NUR ---
Problems reprioritized. Patient report given, questions answered & plan of care reviewed with KIRSTY POLLARD.
--- NOTE | 2020-07-07 06:46 | NUR ---
Patient in room PCU 3012. I have received report from LATRICE Haq and had the opportunity to ask questions and assume patient care.
[2020-07-07 07:00] VITALS: BP 108/65
[2020-07-07 07:41] LABS: PLATELET ESTIMATE NORMAL; POLYCHROMASIA 1+
[2020-07-07 07:42] LABS: ANISOCYTOSIS 3+; HYPOCHROMASIA 1+; ROULEAUX 1+; TARGET CELLS FEW
[2020-07-07] MEDS: ferrous sulfate 325mg tablet PO SCH (07:43)
[2020-07-07] MEDS: HYDROcodone/acetaminophen 10/325mg tab PO PRN ×2 (07:43→20:10)
[2020-07-07] MEDS: multivitamins, therapeutics tablet PO SCH (07:43)
[2020-07-07] MEDS: docusate sod 100mg capsule PO SCH ×2 (07:43→20:10)
[2020-07-07] MEDS: folic acid 1mg tablet PO SCH (07:44)
[2020-07-07] MEDS: thiamine 100mg tablet PO SCH (07:44)
[2020-07-07] MEDS: K and/or MAG REPLACEMENT MC SCH ×2 (07:44→20:00)
[2020-07-07] MEDS ORDERED: methylnaltrexone br 12mg/0.6ml inj***SubQ only SQ SCH (09:10)
--- NOTE | 2020-07-07 09:34 | NUR ---
Removed catheter per order, cannula intact. Will continue to monitor.
[2020-07-07 11:00] VITALS: BP 114/68
[2020-07-07 15:00] VITALS: BP 124/80
--- NOTE | 2020-07-07 18:19 | NUR ---
Problems reprioritized. Patient report given, questions answered & plan of care reviewed with LATRICE Vines.
[2020-07-07 23:00] VITALS: BP 93/54
--- NOTE | 2020-07-08 06:56 | NUR ---
Patient in room PCU 3012. I have received report from LATRICE Vines and had the opportunity to ask questions and assume patient care.
--- NOTE | 2020-07-08 07:03 | NUR ---
Problems reprioritized. Patient report given, questions answered & plan of care reviewed with KIRSTY. Addendum: 07/08/20 at 0704 by Clemente Rivas RN Amended: Links added.
[2020-07-08] MEDS: ferrous sulfate 325mg tablet PO SCH (07:21)
[2020-07-08] MEDS: docusate sod 100mg capsule PO SCH (07:21)
[2020-07-08] MEDS: folic acid 1mg tablet PO SCH (07:21)
[2020-07-08] MEDS: multivitamins, therapeutics tablet PO SCH (07:22)
[2020-07-08] MEDS: thiamine 100mg tablet PO SCH (07:22)
[2020-07-08] MEDS: HYDROcodone/acetaminophen 10/325mg tab PO PRN (07:24)
[2020-07-08 07:25] LABS: HEMOGLOBIN 11.2 g/dl (14.0-17.9)
[2020-07-08 07:27] LABS: BASOPHILS % (AUTO) 0.2 % (0-1); EOSINOPHILS # (AUTO) 0.1 X10'3 (0-0.9); EOSINOPHILS % (AUTO) 0.5 % (0-6); HEMATOCRIT 33.3 % (42.0-52.0); LYMPHOCYTES # (AUTO) 0.7 X10'3 (1.1-4.8); LYMPHOCYTES % (AUTO) 5.4 % (21-51); MEAN CORPUSCULAR HEMOGLOBIN 32.9 PG (27.0-31.0); MEAN CORPUSCULAR HGB CONC 33.6 g/dL (33.0-36.5); MEAN PLATELET VOLUME 7.4 FL (7.4-10.4); MONOCYTES # (AUTO) 0.8 X10'3 (0-0.9); MONOCYTES % (AUTO) 5.7 % (2-12); NEUTROPHILS % (AUTO) 88.2 % (42-75); PLATELET COUNT 218 X10'3 (140-440); RED BLOOD COUNT 3.39 X10'6 (4.70-6.10); RED CELL DISTRIBUTION WIDTH 20.4 % (11.5-14.5); WHITE BLOOD COUNT 13.6 X10'3 (4.5-11.0)
[2020-07-08] MEDS ORDERED: pantoprazole 40mg Tablet.DR PO SCH (07:30)
[2020-07-08 07:36] LABS: MAGNESIUM 1.5 MG/DL (1.5-2.4); PHOSPHORUS 3.6 MG/DL (2.3-4.5)
[2020-07-08 07:53] VITALS: BP 98/62
[2020-07-08] MEDS: K and/or MAG REPLACEMENT MC SCH (08:00)
[2020-07-08 08:38] LABS: ANISOCYTOSIS 3+; PLATELET ESTIMATE NORMAL
--- NOTE | 2020-07-08 10:17 | NUR ---
Student Medication Administration: For this medication-pass time frame, all medication were reviewed, dispensed, administered and documented per hospital policy by Alden nursing education consultant.
--- NOTE | 2020-07-08 10:24 | NUR ---
Student documentation: I have reviewed and agree with all interventions, assessments performed and documented by Alden, doctor of nursing practice.
[2020-07-08 10:59] VITALS: BP 106/71
[2020-07-08] MEDS ORDERED: PANT40TA54 PO (14:57)
[2020-07-08] MEDS ORDERED: MULT-25 PO (14:57)
[2020-07-08] MEDS ORDERED: thiamine tablet PO (14:57)
[2020-07-08] MEDS ORDERED: folic acid tablet PO (14:57)
--- NOTE | 2020-07-08 15:25 | NUR ---
Pt stable for discharge per MD order, all discharge instructions reviewed with patient and all questions answered. PIV discontinued, cannula intact. Telemetry discontinued, telegraphic typewriter mechanic notified. New prescriptions faxed to pharmacy. All belongings collected and sent with patient. Patient picked up in private vehicle by family member, wheeled to lobby by staff.
--- NOTE | 2020-07-08 16:17 | NUR ---
Reassessment: Pt s/p hernia repair (07/05). Pt on clear liquid diet since 07/05, was eating 25% average regular diet. Pt is on day 3 of clear liquid diet post op. Per physical assessment, pt has positive bowel sounds. Last BM (07/08), is having smears and small bowel movements. Relistor was given (07/07), per hospitalist note. Pt is receiving colace BID. Discussed with nurse about diet advancement, patient is getting discharged today. Will continue to monitor for nutrition support needs if diet advances. Addendum: 07/08/20 at [address] Amended: Links added. Addendum: 07/08/20 at [address] Recs: 1) Advance diet as medically indicated to regular 2) Routine bowel care 3) Wt per Rx Addendum: 07/08/20 at [address] MOHAMUD clark with filemon note
== END 2020-07-08 15:25 | disposition home or self-care (01) | DRG 228 ==
LOC: ER 08:23 → ED HOLD 14:49 → ORTHO 4S 17:52 → ICU 2S 07-02 02:07 → PCU 3S 07-05 22:40
PROVIDERS: ADMIT Family Medicine; ATTEND Family Medicine
PROC: BW211ZZ Computerized Tomography (CT Scan) of Abdomen and Pelvis using Low Osmolar Contrast (ICD-10-PCS; 2020-07-01)
PROC: 30233N1 Transfusion of Nonautologous Red Blood Cells into Peripheral Vein, Percutaneous Approach (ICD-10-PCS; 2020-07-01)
PROC: BW211ZZ Computerized Tomography (CT Scan) of Abdomen and Pelvis using Low Osmolar Contrast (ICD-10-PCS; 2020-07-02)
PROC: 8E0W4CZ Robotic Assisted Procedure of Trunk Region, Percutaneous Endoscopic Approach (ICD-10-PCS; 2020-07-05)
PROC: 0WUF4JZ Supplement Abdominal Wall with Synthetic Substitute, Percutaneous Endoscopic Approach (ICD-10-PCS; principal; 2020-07-05 14:41)
DX: K42.0 Umbilical hernia with obstruction, without gangrene (principal); I12.9 Hypertensive chronic kidney disease with stage 1 through stage 4 chronic kidney disease, or unspecified chronic kidney disease; K70.30 Alcoholic cirrhosis of liver without ascites; N18.9 Chronic kidney disease, unspecified; W06.XXXA Fall from bed, initial encounter; D69.6 Thrombocytopenia, unspecified; D62 Acute posthemorrhagic anemia; Z80.3 Family history of malignant neoplasm of breast; Z66 Do not resuscitate; Y93.89 Activity, other specified; Z80.7 Family history of other malignant neoplasms of lymphoid, hematopoietic and related tissues; Y92.89 Other specified places as the place of occurrence of the external cause; Y99.8 Other external cause status
CPT/HCPCS: 36415; 36430; 74177; 76937; 80053; 80061; 81001; 82140; 82272; 82948; 83690; 83735; 84100; 85008; 85025; 85027; 85610; 85730; 86885; 86900; 86901; 86920; 87081; 93005; 93975; 94799; 96374; 97116; 97161; 97530; 99285; A4215; A4618; A6222; A6223; A6258; A6449; C1781; C9113; C9132; C9290; G0378; J0690; J2001; J2060; J2212; J2250; J2405; J2704; J2710; J3010; J3475; J3490; J7060; J7120; P9016; P9045; P9047; Q9967

== ENCOUNTER 2020-07-12 11:05 | Inpatient (IN) | payer MEDICAID ==
[2020-07-12] VITALS (21 sets, daily range): BP systolic 93–144; BP diastolic 35–90
[~2020-07-12] VITALS: Ht 180.3 cm; Wt 80.0 kg
[~2020-07-12 11:05] MED LIST changes: -ASPI81TA52 PO; +FERR325T28 PO; +MULT-25 PO; +PANT40TA54 PO; +folic acid tablet PO; +thiamine tablet PO
[2020-07-12] MEDS ORDERED: MULT-687 PO (13:05)
[2020-07-12] MEDS ORDERED: PANT-47 PO (13:05)
[2020-07-12 13:16] LABS: BASOPHILS % (AUTO) 0.3 % (0-1); EOSINOPHILS # (AUTO) 0.2 X10'3 (0-0.9); EOSINOPHILS % (AUTO) 1.7 % (0-6); HEMATOCRIT 32.5 % (42.0-52.0); LYMPHOCYTES # (AUTO) 0.9 X10'3 (1.1-4.8); MEAN CORPUSCULAR HEMOGLOBIN 33.2 PG (27.0-31.0); MEAN CORPUSCULAR HGB CONC 33.7 g/dL (33.0-36.5); MEAN CORPUSCULAR VOLUME 98.4 FL (78-98); MEAN PLATELET VOLUME 7.2 FL (7.4-10.4); MONOCYTES # (AUTO) 0.8 X10'3 (0-0.9); MONOCYTES % (AUTO) 7.4 % (2-12); NEUTROPHILS # (AUTO) 9.1 X10'3 (1.8-7.7); NEUTROPHILS % (AUTO) 82.6 % (42-75); PLATELET COUNT 207 X10'3 (140-440); RED CELL DISTRIBUTION WIDTH 19.4 % (11.5-14.5)
[2020-07-12] MEDS ORDERED: magnesium Cl slow-release 64mg tablet PO PRN (13:20)
[2020-07-12] MEDS ORDERED: bisacodyl 10mg suppository rectal RC PRN (13:20)
[2020-07-12] MEDS ORDERED: ondansetron/PF 4mg/2ml inj IV PRN ×2 (13:20→16:45)
[2020-07-12] MEDS ORDERED: metoclopramide 5 mg/ml inj IV PRN (13:20)
[2020-07-12] MEDS ORDERED: magnesium 4gm in 100ml NS 100 ML IV PRN (13:20)
[2020-07-12] MEDS ORDERED: HYDROmorphone inj. 0.5 MG/0.5 ML DISP.SYRIN IV PRN (13:20)
[2020-07-12] MEDS ORDERED: potassium CL 10mEq/100ml bag 100 ML IV PRN ×2 (13:20)
[2020-07-12] MEDS ORDERED: mag hydrox/Alum hydrox/simeth 30ml oral suspension PO PRN (13:20)
[2020-07-12] MEDS ORDERED: magnesium 2GM in 50ml NS 50 ML IV PRN (13:20)
[2020-07-12] MEDS ORDERED: magnesium hydroxide 30ml (MOM) UD suspension PO PRN (13:20)
[2020-07-12] MEDS ORDERED: potassium Cl 20 mEq SR tablet PO PRN ×2 (13:20)
[2020-07-12] MEDS ORDERED: acetaminophen 650mg rectal suppository RC PRN (13:20)
[2020-07-12] MEDS ORDERED: acetaminophen 325mg tablet PO PRN ×2 (13:20)
[2020-07-12 13:28] LABS: PARTIAL THROMBOPLASTIN TIME 37 SECONDS (22-32)
[2020-07-12 13:29] LABS: ALANINE AMINOTRANSFERASE 22 U/L (12-78); ALBUMIN/GLOBULIN RATIO 0.4 (1.1-1.5); ALKALINE PHOSPHATASE 103 IU/L (46-116); ANION GAP 8 (8-16); ASPARTATE AMINO TRANSFERASE 63 U/L (10-37); BLOOD UREA NITROGEN 7 MG/DL (7-18); BUN/CREATININE RATIO 9.9 (5.4-32.0); CALCIUM 7.8 MG/DL (8.5-10.1); CHLORIDE 99 MMOL/L (99-107); CREATININE 0.71 MG/DL (0.60-1.10); POTASSIUM 3.6 MMOL/L (3.5-5.1); SODIUM 133 MMOL/L (135-145); TOTAL PROTEIN 7.6 G/DL (6.4-8.2); eGFR > 90 ML/MIN
[2020-07-12 13:30] LABS: GLUCOSE 114 MG/DL (70-104)
[2020-07-12 14:04] LABS: ANISOCYTOSIS 2+; PLATELET ESTIMATE NORMAL; POLYCHROMASIA FEW; ROULEAUX 1+
[2020-07-12] MEDS: normal saline 1000ml 1,000 ML IV SCH (14:15)
--- NOTE | 2020-07-12 15:30 | NUR ---
Received pt from ED via WC tx to bed. abd is saturated with serous fluid. Urostomy bag applied to umbilical sight to preserve skin integrity. Discussed POC, bed low, call light in reach. Pt verbalizes understanding.
--- NOTE | 2020-07-12 16:00 | NUR ---
OR calling for pt. then calls back requesting a rapid Covid. Phoned Dr Austin for approval.
--- NOTE | 2020-07-12 16:25 | NUR ---
Pt transfered to or via bed with Covid result pending.
[2020-07-12] MEDS ORDERED: proCHLORperazine 10 MG/2 ml inj IV PRN (16:45)
[2020-07-12] MEDS ORDERED: meperidine/PF 25mg/ml syringe IV PRN ×2 (16:45)
[2020-07-12] MEDS ORDERED: midazolam 2 mg/2 ml injection ONE (17:07)
[2020-07-12] MEDS ORDERED: fentaNYL/PF 50MCG/1 ML 2ML syringe ONE (17:07)
[2020-07-12] MEDS ORDERED: ceFAZolin 1000mg inj ONE ×2 (17:44)
[2020-07-12] MEDS ORDERED: LIDOcaine 1%/PF 5ML 10 MG/ML VIAL ONE (17:44)
[2020-07-12] MEDS ORDERED: rocuronium 10mg/ml inj IV ONE (17:44)
[2020-07-12] MEDS ORDERED: propofol inj 20 ML IV ONE (17:44)
[2020-07-12] MEDS ORDERED: ondansetron/PF 4mg/2ml inj ONE (17:45)
[2020-07-12] MEDS ORDERED: HYDROcodone/acetaminophen 10/325mg tab PO PRN (17:50)
[2020-07-12] MEDS ORDERED: BUPIVAcaine/PF 2.5 mg/ml (0.25%) 30ml vial ONE (17:57)
--- NOTE | 2020-07-12 17:58 | NUR ---
RECEIVED FROM OR VIA BED ACCOMPANIED BY ANESTHESIOLOGIST DR MARINELLI, REPORT GIVEN. PT AWAKE AND ALERT AND DENIES PAIN. 20 GAUGE PIV L FA PATENT AND RUNNING LR AT 100 ML/HR. STERI STRIP AND TEGADERM DRESSING TO UMBILICUS CDI. ABD SOFT, VSS, SKIN PINK AND WARM, BRISK CAP REFILL, PPULSES PALPABLE, SCDS APPLIED, RESTING COMFORTABLY.
--- NOTE | 2020-07-12 18:17 | NUR ---
Patient in room [facility]E 345. I have received report from LATRICE Augustin and had the opportunity to ask questions and assume patient care.
--- NOTE | 2020-07-12 18:18 | NUR ---
Problems reprioritized. Patient report given, questions answered & plan of care reviewed with Shandra Navarrete RN.
[2020-07-12] MEDS: meperidine/PF 25mg/ml syringe IV PRN ×2 (18:36→19:19)
--- NOTE | 2020-07-12 18:50 | NUR ---
PATIENT ARRIVED AT 1840 FROM RECOVERY, LATRICE LOREDO WITH PATIENT, NOT IN ACUTE DISTRESS AND DENIES ANY PAIN OR DISCOMFORT.
--- NOTE | 2020-07-12 19:50 | NUR ---
TRANSPORTED VIA BED ACCOMPANIED BY MYSELF, REPORT GIVEN. PT AWAKE AND ALERT WITH PAIN LEVEL OF 4. 20 GAUGE PIV L FA PATENT AND RUNNING LR AT 100 ML/HR. STERI STRIP AND TEGADERM DRESSING TO UMBILICUS CDI. ABD SOFT, VSS, SKIN PINK AND WARM, BRISK CAP REFILL, PPULSES PALPABLE, SCDS APPLIED, RESTING COMFORTABLY. TOLERATING FLUIDS. PT ASKING FOR ETOH COUNSELING, REPORTED TO WAYNE POLLARD AND TUAN RN AND MAINSPRING FORMER TO BE CONTACTED TOMMORROW. LEFT IN CARE OF TUAN POLLARD.
[2020-07-12] MEDS: K and/or MAG REPLACEMENT MC SCH (20:00)
--- NOTE | 2020-07-12 20:32 | NUR ---
ARRIVED AT 1840 FROM RECOVERY Addendum: 07/12/20 at 2032 by Maddie Mustafa RN Amended: Links added.
[2020-07-13 00:15] VITALS: BP_SYST 112; BP_SYST 119; BP_DIAS 66; BP_DIAS 71
[2020-07-13] MEDS: heparin, porcine 5000 units/ml vial SQ SCH ×2 (00:49→07:37)
[2020-07-13] MEDS: normal saline 1000ml 1,000 ML IV SCH ×2 (00:49→09:20)
[2020-07-13] MEDS: ceFAZolin/D5W- 1GM premix 50 ML IV SCH ×2 (00:50→07:37)
[2020-07-13 04:00] VITALS: BP 121/69
[2020-07-13 05:37] LABS: ALANINE AMINOTRANSFERASE 21 U/L (12-78); ALBUMIN/GLOBULIN RATIO 0.3 (1.1-1.5); ALKALINE PHOSPHATASE 111 IU/L (46-116); ANION GAP 5 (8-16); ASPARTATE AMINO TRANSFERASE 61 U/L (10-37); BILIRUBIN,TOTAL 2.5 MG/DL (0.1-1.0); BLOOD UREA NITROGEN 5 MG/DL (7-18); BUN/CREATININE RATIO 5.9 (5.4-32.0); CALCIUM 7.7 MG/DL (8.5-10.1); CHLORIDE 100 MMOL/L (99-107); CHOL/HDL RATIO 11.5 (0.00-4.99); CHOLESTEROL 138 MG/DL (0-200); CREATININE 0.85 MG/DL (0.60-1.10); HDL CHOLESTEROL 12 MG/DL (35-60); LDL CHOLESTEROL 105 MG/DL (50-100); MAGNESIUM 1.8 MG/DL (1.5-2.4); PHOSPHORUS 3.4 MG/DL (2.3-4.5); POTASSIUM 3.6 MMOL/L (3.5-5.1); SODIUM 129 MMOL/L (135-145); TOTAL CARBON DIOXIDE 24.4 MMOL/L (24-32); TOTAL PROTEIN 7.9 G/DL (6.4-8.2); TRIGLYCERIDES 96 MG/DL (20-135); eGFR > 90 ML/MIN
[2020-07-13 05:38] LABS: BASOPHILS % (AUTO) 0.3 % (0-1); EOSINOPHILS % (AUTO) 0 % (0-6); HEMOGLOBIN 10.9 g/dl (14.0-17.9); LYMPHOCYTES # (AUTO) 0.5 X10'3 (1.1-4.8); LYMPHOCYTES % (AUTO) 5.5 % (21-51); MEAN CORPUSCULAR HEMOGLOBIN 33.5 PG (27.0-31.0); MEAN CORPUSCULAR VOLUME 98.5 FL (78-98); MEAN PLATELET VOLUME 7.3 FL (7.4-10.4); MONOCYTES # (AUTO) 0.3 X10'3 (0-0.9); MONOCYTES % (AUTO) 2.9 % (2-12); NEUTROPHILS # (AUTO) 8.9 X10'3 (1.8-7.7); NEUTROPHILS % (AUTO) 91.3 % (42-75); PLATELET COUNT 211 X10'3 (140-440); RED BLOOD COUNT 3.25 X10'6 (4.70-6.10); RED CELL DISTRIBUTION WIDTH 20.1 % (11.5-14.5); WHITE BLOOD COUNT 9.8 X10'3 (4.5-11.0)
[2020-07-13 05:39] LABS: GLUCOSE 144 MG/DL (70-104)
--- NOTE | 2020-07-13 06:29 | NUR ---
Problems reprioritized. Patient report given, questions answered & plan of care reviewed with LATRICE Rodriguez.
--- NOTE | 2020-07-13 06:48 | NUR ---
Patient in room [facility] 345. I have received report from [facility] and had the opportunity to ask questions and assume patient care.
[2020-07-13 07:00] VITALS: BP 111/66
[2020-07-13 07:39] VITALS: BP 111/66
[2020-07-13] MEDS ORDERED: diltiazem CD 180mg cap (once-daily) PO SCH (08:00)
[2020-07-13] MEDS ORDERED: multivitamins, therapeutics tablet PO SCH (08:00)
[2020-07-13] MEDS ORDERED: pantoprazole 40mg Tablet.DR PO SCH (08:00)
[2020-07-13] MEDS: K and/or MAG REPLACEMENT MC SCH (08:00)
[2020-07-13] MEDS ORDERED: ferrous sulfate 325mg tablet PO SCH (08:00)
[2020-07-13 12:00] VITALS: BP 101/65
[2020-07-13] MEDS ORDERED: FURO-150 PO (12:28)
[2020-07-13] MEDS ORDERED: POTA10TA36 PO (12:28)
--- NOTE | 2020-07-13 14:43 | NUR ---
patient appears stable. Seen by DR Pate and DR Levi. Is for discharge. Dressing changed to abdomen,no leaking observed, all discharge instructions given to patient and to mother. . patient DC via private car to home 1325hrs.
== END 2020-07-13 13:25 | disposition home or self-care (01) | DRG 794 ==
LOC: ER 11:05 → ED HOLD 13:19 → SUR 3N 15:30
PROVIDERS: ADMIT Family Medicine; ATTEND Family Medicine
PROC: 0WBF0ZZ Excision of Abdominal Wall, Open Approach (ICD-10-PCS; principal; 2020-07-12 16:55)
DX: T81.89XA Other complications of procedures, not elsewhere classified, initial encounter (principal); D64.9 Anemia, unspecified; E87.1 Hypo-osmolality and hyponatremia; I12.9 Hypertensive chronic kidney disease with stage 1 through stage 4 chronic kidney disease, or unspecified chronic kidney disease; K21.9 Gastro-esophageal reflux disease without esophagitis; K70.31 Alcoholic cirrhosis of liver with ascites; K76.6 Portal hypertension; Z20.828 Contact with and (suspected) exposure to other viral communicable diseases; Y83.8 Other surgical procedures as the cause of abnormal reaction of the patient, or of later complication, without mention of misadventure at the time of the procedure; N18.9 Chronic kidney disease, unspecified; K76.9 Liver disease, unspecified; Z79.899 Other long term (current) drug therapy; Z80.3 Family history of malignant neoplasm of breast; Z82.49 Family history of ischemic heart disease and other diseases of the circulatory system; Z87.891 Personal history of nicotine dependence; Z88.5 Allergy status to narcotic agent; Y92.89 Other specified places as the place of occurrence of the external cause
CPT/HCPCS: 36415; 80053; 80061; 82948; 83036; 83735; 84100; 85008; 85025; 85610; 85730; 86885; 86900; 86901; 87081; 87635; 99285; G0378; J0690; J1644; J2175; J2250; J2405; J2704; J3010; J3490; J7030

== ENCOUNTER 2020-07-15 22:47 | Emergency (ER) | payer MEDICAID ==
[~2020-07-15] VITALS: Ht 180.3 cm; Wt 88.6 kg
[~2020-07-15 22:47] MED LIST changes: +FURO-150 PO; -MULT-25 PO; +MULT-687 PO; +PANT-47 PO; -PANT40TA54 PO; +POTA10TA36 PO; -folic acid tablet PO; -thiamine tablet PO
[2020-07-15 23:18] LABS: HEMOGLOBIN 11.4 g/dl (14.0-17.9); RED CELL DISTRIBUTION WIDTH 19.3 % (11.5-14.5)
[2020-07-15 23:20] LABS: BASOPHILS % (AUTO) 0.2 % (0-1); EOSINOPHILS # (AUTO) 0.3 X10'3 (0-0.9); EOSINOPHILS % (AUTO) 2.2 % (0-6); HEMATOCRIT 33.9 % (42.0-52.0); LYMPHOCYTES # (AUTO) 1.1 X10'3 (1.1-4.8); LYMPHOCYTES % (AUTO) 8.3 % (21-51); MEAN CORPUSCULAR HEMOGLOBIN 33.4 PG (27.0-31.0); MEAN CORPUSCULAR HGB CONC 33.8 g/dL (33.0-36.5); MEAN PLATELET VOLUME 7.1 FL (7.4-10.4); MONOCYTES # (AUTO) 0.9 X10'3 (0-0.9); MONOCYTES % (AUTO) 6.9 % (2-12); NEUTROPHILS # (AUTO) 10.9 X10'3 (1.8-7.7); NEUTROPHILS % (AUTO) 82.4 % (42-75); PLATELET COUNT 257 X10'3 (140-440); RED BLOOD COUNT 3.42 X10'6 (4.70-6.10); WHITE BLOOD COUNT 13.3 X10'3 (4.5-11.0)
[2020-07-15] MEDS ORDERED: tranexamic acid 1gm/0.7% sal. 100 ML IV ONE (23:25)
[2020-07-15 23:27] LABS: ALBUMIN 2.3 G/DL (3.4-5.0); ANION GAP 8 (8-16); BLOOD UREA NITROGEN 6 MG/DL (7-18); BUN/CREATININE RATIO 8.2 (5.4-32.0); CALCIUM 8.1 MG/DL (8.5-10.1); CHLORIDE 98 MMOL/L (99-107); CREATININE 0.73 MG/DL (0.60-1.10); POTASSIUM 3.3 MMOL/L (3.5-5.1); SODIUM 130 MMOL/L (135-145); TOTAL CARBON DIOXIDE 23.6 MMOL/L (24-32); eGFR > 90 ML/MIN
[2020-07-15 23:30] LABS: GLUCOSE 123 MG/DL (70-104)
[2020-07-15 23:44] LABS: PARTIAL THROMBOPLASTIN TIME 33 SECONDS (22-32)
[2020-07-15] MEDS ORDERED: iohexol 300mg/ml 100ml inj. ONE (23:45)
[2020-07-16] MEDS ORDERED: potassium Cl 20 mEq SR tablet PO ONE (01:15)
[2020-07-16] MEDS ORDERED: magnesium oxide 400mg tablet PO ONE (01:15)
[2020-07-16 01:31] VITALS: BP 124/77
== END 2020-07-16 01:28 | disposition home or self-care (01) ==
LOC: ER 22:47
DX: K91.841 Postprocedural hemorrhage of a digestive system organ or structure following other procedure (principal); K76.6 Portal hypertension; I12.9 Hypertensive chronic kidney disease with stage 1 through stage 4 chronic kidney disease, or unspecified chronic kidney disease; N18.9 Chronic kidney disease, unspecified; Z98.890 Other specified postprocedural states; Z72.89 Other problems related to lifestyle; Z88.5 Allergy status to narcotic agent; Z79.899 Other long term (current) drug therapy
CPT/HCPCS: 36415; 74177; 80048; 85025; 85610; 85730; 96365; 99285; Q9967

== ENCOUNTER 2020-07-26 10:53 | Emergency (ER) | payer MEDICAID ==
[~2020-07-26] VITALS: Ht 180.3 cm; Wt 88.6 kg
[2020-07-26] MEDS ORDERED: normal saline 1000ML IV soln IVB ONE (11:30)
[2020-07-26] MEDS ORDERED: ondansetron/PF 4mg/2ml inj IV ONE (11:30)
[2020-07-26 12:09] LABS: BASOPHILS % (AUTO) 0.2 % (0-1); EOSINOPHILS # (AUTO) 0.1 X10'3 (0-0.9); EOSINOPHILS % (AUTO) 0.6 % (0-6); HEMATOCRIT 37.4 % (42.0-52.0); HEMOGLOBIN 12.4 g/dl (14.0-17.9); LYMPHOCYTES # (AUTO) 0.6 X10'3 (1.1-4.8); LYMPHOCYTES % (AUTO) 4.5 % (21-51); MEAN CORPUSCULAR HGB CONC 33.2 g/dL (33.0-36.5); MEAN CORPUSCULAR VOLUME 99.5 FL (78-98); MEAN PLATELET VOLUME 6.7 FL (7.4-10.4); MONOCYTES # (AUTO) 0.4 X10'3 (0-0.9); MONOCYTES % (AUTO) 3.3 % (2-12); NEUTROPHILS # (AUTO) 12.4 X10'3 (1.8-7.7); NEUTROPHILS % (AUTO) 91.4 % (42-75); PLATELET COUNT 213 X10'3 (140-440); RED BLOOD COUNT 3.76 X10'6 (4.70-6.10); RED CELL DISTRIBUTION WIDTH 18.7 % (11.5-14.5); WHITE BLOOD COUNT 13.6 X10'3 (4.5-11.0)
[2020-07-26 12:25] LABS: ALANINE AMINOTRANSFERASE 22 U/L (12-78); ALBUMIN 2.3 G/DL (3.4-5.0); ALBUMIN/GLOBULIN RATIO 0.4 (1.1-1.5); ALKALINE PHOSPHATASE 116 IU/L (46-116); ANION GAP 8 (8-16); ASPARTATE AMINO TRANSFERASE 62 U/L (10-37); BILIRUBIN,TOTAL 2.6 MG/DL (0.1-1.0); BLOOD UREA NITROGEN 9 MG/DL (7-18); BUN/CREATININE RATIO 10.3 (5.4-32.0); CALCIUM 8.8 MG/DL (8.5-10.1); CHLORIDE 101 MMOL/L (99-107); CREATININE 0.87 MG/DL (0.60-1.10); GLUCOSE 144 MG/DL (70-104); LIPASE < 50 U/L (73-393); POTASSIUM 3.4 MMOL/L (3.5-5.1); SODIUM 134 MMOL/L (135-145); TOTAL CARBON DIOXIDE 25.1 MMOL/L (24-32); TOTAL PROTEIN 8.3 G/DL (6.4-8.2); eGFR 89 ML/MIN
[2020-07-26 12:43] LABS: ANISOCYTOSIS 2+; ROULEAUX 1+
[2020-07-26 12:44] LABS: PLATELET ESTIMATE NORMAL
[2020-07-26 13:51] LABS: CLARITY,URINE CLOUDY (Clear); COLOR,URINE AMBER (Yellow); UA COLLECTION TYPE CLN CATCH MIDSTREAM
[2020-07-26 13:56] LABS: MUCUS STRANDS MANY /LPF (Neg)
[2020-07-26 14:00] LABS: HYALINE CASTS >30 /LPF (NEGATIVE)
[2020-07-26 14:01] LABS: SQUAMOUS EPITHELIAL CELL,UR FEW /LPF (FEW)
[2020-07-26 14:02] LABS: WBC,URINE 20-30 /HPF (0-4)
[2020-07-26 14:05] LABS: BACTERIA,URINE 3+ /HPF (Neg)
[2020-07-26 14:06] LABS: TRANSITIONAL EPI CELLS,URINE FEW /HPF
[2020-07-26] MEDS ORDERED: ONDA4TAB6 PO (14:12)
[2020-07-26 14:30] VITALS: BP 104/71
== END 2020-07-26 14:28 | disposition home or self-care (01) ==
LOC: ER 10:54
DX: R11.2 Nausea with vomiting, unspecified (principal); R19.7 Diarrhea, unspecified; I12.9 Hypertensive chronic kidney disease with stage 1 through stage 4 chronic kidney disease, or unspecified chronic kidney disease; N18.9 Chronic kidney disease, unspecified; Z98.890 Other specified postprocedural states; Z72.89 Other problems related to lifestyle; Z88.5 Allergy status to narcotic agent; Z79.899 Other long term (current) drug therapy
CPT/HCPCS: 36415; 80053; 81001; 83690; 85025; 87077; 87088; 87186; 96361; 96374; 99283; J2405; J7030; 85008

== ENCOUNTER 2020-08-01 00:42 | Emergency (ER) | payer MEDICAID ==
[~2020-08-01] VITALS: Ht 180.3 cm; Wt 78.8 kg
[~2020-08-01 00:42] MED LIST changes: +ONDA4TAB6 PO
[2020-08-01 01:16] LABS: BASOPHILS % (AUTO) 0.1 % (0-1); EOSINOPHILS # (AUTO) 0.1 X10'3 (0-0.9); EOSINOPHILS % (AUTO) 0.6 % (0-6); HEMATOCRIT 32.4 % (42.0-52.0); HEMOGLOBIN 11.2 g/dl (14.0-17.9); LYMPHOCYTES # (AUTO) 1.1 X10'3 (1.1-4.8); LYMPHOCYTES % (AUTO) 10.1 % (21-51); MEAN CORPUSCULAR HEMOGLOBIN 33.9 PG (27.0-31.0); MEAN CORPUSCULAR HGB CONC 34.6 g/dL (33.0-36.5); MEAN CORPUSCULAR VOLUME 97.9 FL (78-98); MEAN PLATELET VOLUME 6.7 FL (7.4-10.4); MONOCYTES # (AUTO) 1.1 X10'3 (0-0.9); MONOCYTES % (AUTO) 10.1 % (2-12); NEUTROPHILS # (AUTO) 8.8 X10'3 (1.8-7.7); NEUTROPHILS % (AUTO) 79.1 % (42-75); PLATELET COUNT 202 X10'3 (140-440); RED BLOOD COUNT 3.31 X10'6 (4.70-6.10); RED CELL DISTRIBUTION WIDTH 17.9 % (11.5-14.5); WHITE BLOOD COUNT 11.1 X10'3 (4.5-11.0)
[2020-08-01 01:34] LABS: ALANINE AMINOTRANSFERASE 18 U/L (12-78); ALBUMIN 2.2 G/DL (3.4-5.0); ALBUMIN/GLOBULIN RATIO 0.4 (1.1-1.5); ALKALINE PHOSPHATASE 114 IU/L (46-116); ANION GAP 8 (8-16); ASPARTATE AMINO TRANSFERASE 37 U/L (10-37); BILIRUBIN,TOTAL 2.6 MG/DL (0.1-1.0); BLOOD UREA NITROGEN 8 MG/DL (7-18); BUN/CREATININE RATIO 10.3 (5.4-32.0); CALCIUM 7.8 MG/DL (8.5-10.1); CHLORIDE 99 MMOL/L (99-107); CREATININE 0.78 MG/DL (0.60-1.10); GLUCOSE 126 MG/DL (70-104); LIPASE 80 U/L (73-393); POTASSIUM 3.1 MMOL/L (3.5-5.1); SODIUM 132 MMOL/L (135-145); TOTAL CARBON DIOXIDE 25.2 MMOL/L (24-32); TOTAL PROTEIN 7.7 G/DL (6.4-8.2); eGFR > 90 ML/MIN
[2020-08-01] MEDS ORDERED: potassium Cl 20 mEq SR tablet PO STA (01:59)
[2020-08-01] MEDS ORDERED: ONDA4TAB6 PO (02:02)
[2020-08-01] MEDS ORDERED: normal saline 1000ML IV soln IVB ONE (02:05)
[2020-08-01] MEDS ORDERED: ondansetron/PF 4mg/2ml inj IV ONE (02:05)
[2020-08-01] MEDS ORDERED: DIPH1TAB PO (02:52)
[2020-08-01] MEDS ORDERED: METR500T PO (02:52)
[2020-08-01] MEDS ORDERED: CIPR-259 PO (02:52)
[2020-08-01 03:37] VITALS: BP 122/68
== END 2020-08-01 03:39 | disposition home or self-care (01) ==
LOC: ER 00:43
DX: A08.4 Viral intestinal infection, unspecified (principal); K70.31 Alcoholic cirrhosis of liver with ascites; D64.9 Anemia, unspecified; K21.9 Gastro-esophageal reflux disease without esophagitis; I13.10 Hypertensive heart and chronic kidney disease without heart failure, with stage 1 through stage 4 chronic kidney disease, or unspecified chronic kidney disease; N18.9 Chronic kidney disease, unspecified; Z88.5 Allergy status to narcotic agent; Z79.899 Other long term (current) drug therapy
CPT/HCPCS: 36415; 74176; 80053; 83690; 85025; 96361; 96374; 99284; J2405; J7030

== ENCOUNTER 2020-08-14 06:21 | Day surgery (SDC) | payer MEDICAID ==
[~2020-08-14] VITALS: Ht 180.3 cm; Wt 83.6 kg
[~2020-08-14 06:21] MED LIST changes: +DIPH1TAB PO; -FURO-150 PO
[2020-08-14 06:40] VITALS: BP 120/71
[2020-08-14] MEDS ORDERED: albumin 25% 100mL bottle x 1 IV PRN (06:55)
[2020-08-14] MEDS ORDERED: normal saline 1000ml 1,000 ML IV PRN (07:00)
[2020-08-14] MEDS ORDERED: MECO10005 PO (07:18)
[2020-08-14] MEDS ORDERED: FURO20TA4 PO (07:18)
[2020-08-14] MEDS ORDERED: BIOT10005 PO (07:18)
[2020-08-14] MEDS ORDERED: POTA10TA36 PO (07:18)
[2020-08-14] MEDS ORDERED: ONDA-103 PO (07:18)
--- NOTE | 2020-08-14 08:46 | NUR ---
pt procedure cancelled pt Rory GUZMÁN
[2020-08-15] MEDS ORDERED: SULF1TAB49 PO (18:50)
== END 2020-08-14 08:25 | disposition home or self-care (01) ==
LOC: SSTAY O 06:21
PROVIDERS: ATTEND Radiology Vascular & Interventional Radiology
DX: R18.8 Other ascites (principal); R14.0 Abdominal distension (gaseous); K74.60 Unspecified cirrhosis of liver; K21.9 Gastro-esophageal reflux disease without esophagitis; D64.9 Anemia, unspecified; I12.9 Hypertensive chronic kidney disease with stage 1 through stage 4 chronic kidney disease, or unspecified chronic kidney disease; N18.9 Chronic kidney disease, unspecified; Z88.5 Allergy status to narcotic agent; Z79.899 Other long term (current) drug therapy; Z80.3 Family history of malignant neoplasm of breast; Z82.49 Family history of ischemic heart disease and other diseases of the circulatory system
CPT/HCPCS: 76705

== ENCOUNTER 2020-08-15 12:12 | Emergency (ER) | payer MEDICAID ==
[~2020-08-15] VITALS: Ht 180.3 cm; Wt 83.4 kg
[~2020-08-15 12:12] MED LIST changes: +BIOT10005 PO; -DIPH1TAB PO; +FURO20TA4 PO; +MECO10005 PO; -MULT-687 PO; +ONDA-103 PO; -ONDA4TAB6 PO; -PANT-47 PO
[2020-08-15 17:24] LABS: BASOPHILS % (AUTO) 0.4 % (0-1); EOSINOPHILS # (AUTO) 0.1 X10'3 (0-0.9); EOSINOPHILS % (AUTO) 2.2 % (0-6); HEMATOCRIT 29.5 % (42.0-52.0); LYMPHOCYTES % (AUTO) 15.9 % (21-51); MEAN CORPUSCULAR HGB CONC 33.9 g/dL (33.0-36.5); MEAN CORPUSCULAR VOLUME 97.2 FL (78-98); MEAN PLATELET VOLUME 7.1 FL (7.4-10.4); MONOCYTES # (AUTO) 0.7 X10'3 (0-0.9); NEUTROPHILS # (AUTO) 4.6 X10'3 (1.8-7.7); NEUTROPHILS % (AUTO) 70.5 % (42-75); PLATELET COUNT 147 X10'3 (140-440); RED BLOOD COUNT 3.04 X10'6 (4.70-6.10); RED CELL DISTRIBUTION WIDTH 17.2 % (11.5-14.5); WHITE BLOOD COUNT 6.5 X10'3 (4.5-11.0)
[2020-08-15 17:34] LABS: ALANINE AMINOTRANSFERASE 17 U/L (12-78); ALBUMIN 1.9 G/DL (3.4-5.0); ALBUMIN/GLOBULIN RATIO 0.3 (1.1-1.5); ALKALINE PHOSPHATASE 110 IU/L (46-116); ANION GAP 8 (8-16); ASPARTATE AMINO TRANSFERASE 35 U/L (10-37); BILIRUBIN,TOTAL 2.1 MG/DL (0.1-1.0); BLOOD UREA NITROGEN 10 MG/DL (7-18); BUN/CREATININE RATIO 12.7 (5.4-32.0); CALCIUM 7.9 MG/DL (8.5-10.1); CHLORIDE 100 MMOL/L (99-107); CREATININE 0.79 MG/DL (0.60-1.10); POTASSIUM 3.5 MMOL/L (3.5-5.1); SODIUM 134 MMOL/L (135-145); TOTAL CARBON DIOXIDE 25.6 MMOL/L (24-32); TOTAL PROTEIN 7.7 G/DL (6.4-8.2); eGFR > 90 ML/MIN
[2020-08-15 17:39] LABS: GLUCOSE 111 MG/DL (70-104)
[2020-08-15] MEDS ORDERED: iohexol 300mg/ml 100ml inj. ONE (18:00)
[2020-08-15 18:24] LABS: CLARITY,URINE SLIGHTLY CLOUDY (Clear); COLOR,URINE YELLOW (Yellow); GLUCOSE, URINE NEGATIVE (Neg); KETONES,URINE NEGATIVE (Neg); LEUKOCYTE ESTERASE ,URINE NEGATIVE (Neg); NITRITES, URINE NEGATIVE (Neg); OCCULT BLOOD,URINE SMALL (Neg); PH,URINE 5.5 (4.8-8.0); PROTEIN,URINE TRACE mg/dl (Neg); UROBILINOGEN,URINE 0.2 E.U/dL (0.2-1.0)
[2020-08-15 18:37] LABS: UA COLLECTION TYPE URINAL
[2020-08-15 18:39] LABS: BACTERIA,URINE 1+ /HPF (Neg); RBC,URINE NONE SEEN /HPF (0-2); SQUAMOUS EPITHELIAL CELL,UR FEW /LPF (FEW); WBC,URINE 0-4 /HPF (0-4)
[2020-08-15] MEDS ORDERED: SULF1TAB49 PO (18:50)
[2020-08-15 19:14] VITALS: BP 122/66
== END 2020-08-15 19:16 | disposition home or self-care (01) ==
LOC: ER 12:12
DX: L76.82 Other postprocedural complications of skin and subcutaneous tissue (principal); L08.89 Other specified local infections of the skin and subcutaneous tissue; R14.0 Abdominal distension (gaseous); K21.9 Gastro-esophageal reflux disease without esophagitis; I12.9 Hypertensive chronic kidney disease with stage 1 through stage 4 chronic kidney disease, or unspecified chronic kidney disease; N18.9 Chronic kidney disease, unspecified; Z98.890 Other specified postprocedural states; Z88.5 Allergy status to narcotic agent; Z79.899 Other long term (current) drug therapy
CPT/HCPCS: 36415; 74177; 80053; 81001; 83605; 84145; 85025; 87040; 87088; 93005; 99285; Q9967

== ENCOUNTER 2020-08-26 06:54 | Day surgery (SDC) | payer MEDICAID ==
[~2020-08-26] VITALS: Ht 180.3 cm; Wt 84.3 kg
[~2020-08-26 06:54] MED LIST changes: -ONDA-103 PO
[2020-08-26] MEDS ORDERED: albumin 25% 100mL bottle x 1 IV PRN (07:25)
[2020-08-26 07:27] VITALS: BP 108/72
[2020-08-26 08:30] VITALS: BP 108/72
[2020-08-26 09:45] VITALS: BP 100/50
[2020-08-26 10:00] VITALS: BP 101/62
[2020-08-26 10:30] VITALS: BP 100/59
[2020-08-26 11:00] VITALS: BP 111/51
== END 2020-08-26 11:15 | disposition home or self-care (01) ==
LOC: SSTAY O 06:54
PROVIDERS: ATTEND Radiology Vascular & Interventional Radiology
DX: K70.31 Alcoholic cirrhosis of liver with ascites (principal); I12.9 Hypertensive chronic kidney disease with stage 1 through stage 4 chronic kidney disease, or unspecified chronic kidney disease; N18.9 Chronic kidney disease, unspecified; D64.9 Anemia, unspecified; Z98.890 Other specified postprocedural states; Z72.89 Other problems related to lifestyle; Z88.5 Allergy status to narcotic agent; Z79.899 Other long term (current) drug therapy; Z80.3 Family history of malignant neoplasm of breast; Z80.49 Family history of malignant neoplasm of other genital organs
CPT/HCPCS: 49083; P9047

== ENCOUNTER → 2020-09-07 | Emergency (ER) | payer MEDICAID ==
[~2020-09-07] VITALS: Ht 180.3 cm; Wt 79.5 kg
[~2020-09-07] MED LIST changes: -BIOT10005 PO; -FERR325T28 PO; -FURO20TA4 PO; -POTA10TA36 PO
[2020-09-07 18:41] VITALS: BP 130/79
[2020-09-07 20:07] LABS: BASOPHILS % (AUTO) 0.5 % (0-1); EOSINOPHILS % (AUTO) 0 % (0-6); HEMATOCRIT 30.6 % (42.0-52.0); HEMOGLOBIN 10.6 g/dl (14.0-17.9); LYMPHOCYTES # (AUTO) 1.1 X10'3 (1.1-4.8); LYMPHOCYTES % (AUTO) 12.9 % (21-51); MEAN CORPUSCULAR HEMOGLOBIN 32.7 PG (27.0-31.0); MEAN CORPUSCULAR HGB CONC 34.6 g/dL (33.0-36.5); MEAN CORPUSCULAR VOLUME 94.4 FL (78-98); MEAN PLATELET VOLUME 6.7 FL (7.4-10.4); MONOCYTES # (AUTO) 0.9 X10'3 (0-0.9); MONOCYTES % (AUTO) 11.4 % (2-12); NEUTROPHILS # (AUTO) 6.2 X10'3 (1.8-7.7); NEUTROPHILS % (AUTO) 75.2 % (42-75); PLATELET COUNT 160 X10'3 (140-440); RED BLOOD COUNT 3.24 X10'6 (4.70-6.10); RED CELL DISTRIBUTION WIDTH 15.9 % (11.5-14.5); WHITE BLOOD COUNT 8.2 X10'3 (4.5-11.0)
[2020-09-07 20:34] LABS: ALANINE AMINOTRANSFERASE 12 U/L (12-78); ALBUMIN 1.9 G/DL (3.4-5.0); ALBUMIN/GLOBULIN RATIO 0.3 (1.1-1.5); ALKALINE PHOSPHATASE 107 IU/L (46-116); ANION GAP 8 (8-16); ASPARTATE AMINO TRANSFERASE 26 U/L (10-37); BILIRUBIN,TOTAL 2.4 MG/DL (0.1-1.0); BLOOD UREA NITROGEN 11 MG/DL (7-18); BUN/CREATININE RATIO 12.5 (5.4-32.0); CALCIUM 7.8 MG/DL (8.5-10.1); CHLORIDE 101 MMOL/L (99-107); CREATININE 0.88 MG/DL (0.60-1.10); LIPASE < 50 U/L (73-393); POTASSIUM 3.1 MMOL/L (3.5-5.1); SODIUM 136 MMOL/L (135-145); TOTAL CARBON DIOXIDE 26.8 MMOL/L (24-32); TOTAL PROTEIN 7.7 G/DL (6.4-8.2); eGFR 87 ML/MIN
[2020-09-07 20:36] LABS: GLUCOSE 118 MG/DL (70-104)
== END | disposition left against medical advice (07) ==
LOC: ER 18:22
DX: R19.7 Diarrhea, unspecified (principal); Z53.21 Procedure and treatment not carried out due to patient leaving prior to being seen by health care provider
CPT/HCPCS: 36415; 80053; 83690; 85025

== ENCOUNTER 2020-09-27 06:15 | Day surgery (SDC) | payer MEDICAID ==
[~2020-09-27] VITALS: Ht 180.3 cm; Wt 73.3 kg
[2020-09-27 06:30] VITALS: BP 108/66
[2020-09-27] MEDS ORDERED: albumin 25% 100mL bottle x 1 IV PRN (06:35)
[2020-09-27 06:58] VITALS: BP 108/66
== END 2020-09-27 08:15 | disposition home or self-care (01) ==
LOC: SSTAY O 06:15
PROVIDERS: ATTEND Radiology Vascular & Interventional Radiology
DX: K70.31 Alcoholic cirrhosis of liver with ascites (principal); R14.0 Abdominal distension (gaseous); K21.9 Gastro-esophageal reflux disease without esophagitis; D64.9 Anemia, unspecified; I12.9 Hypertensive chronic kidney disease with stage 1 through stage 4 chronic kidney disease, or unspecified chronic kidney disease; N18.9 Chronic kidney disease, unspecified; Z98.890 Other specified postprocedural states; Z72.89 Other problems related to lifestyle; Z88.5 Allergy status to narcotic agent; Z79.899 Other long term (current) drug therapy; Z80.3 Family history of malignant neoplasm of breast; Z82.49 Family history of ischemic heart disease and other diseases of the circulatory system; Z80.8 Family history of malignant neoplasm of other organs or systems
CPT/HCPCS: 76705